=== PATIENT | female | born 1930 | race African-American/Black ===

== ENCOUNTER 2017-11-28 00:33 | Emergency (ER) | payer MEDICARE ==
[~2017-11-28] VITALS: Ht 172.7 cm; Wt 61.7 kg
[~2017-11-28 00:33] MED LIST: FOLIC ACID1 MG PO; LEVOTHYROXINE50 MCG PO; METOPROLOL TART25 MG PO; WARFARIN SODIUM3 MG PO
--- NOTE | 2017-11-28 01:56 | Diagnostic Imaging Report ---
EXAM: PELVIS AP 1-2 VIEWS INDICATION: Left knee swelling, pain, left hip pain COMPARISON: None FINDINGS: BONES: No acute fractures. JOINTS: Degenerative changes at the bilateral hips, right greater than left. SOFT TISSUES: Normal IMPRESSION: No acute pelvic findings. Signed by: Dr. Radha Hale M.D. on 11/28/2017 1:53 AM
--- NOTE | 2017-11-28 02:02 | Diagnostic Imaging Report ---
EXAM: KNEE LEFT THREE VIEWS, AP, crosstable lateral and oblique INDICATION: Left knee pain, fall COMPARISON: None FINDINGS: BONES: No acute fractures. Well-corticated ossification adjacent to the medial femoral condyle consistent with old injury. JOINTS: No malalignment. Chondrocalcinosis. Tricompartmental degenerative changes. SOFT TISSUES: Likely small suprapatellar effusion. Vascular calcifications. IMPRESSION: No evidence of an acute left knee fracture. Signed by: Dr. Radha Hale M.D. on 11/28/2017 1:58 AM
[2017-11-29] MEDS ORDERED: LISINOPRIL10 MG PO (21:37)
[2017-11-29] MEDS ORDERED: LEVOTHYROXINE88 MCG PO (21:37)
[2017-11-29] MEDS ORDERED: METOPROLOL TART25 MG PO (21:38)
[2017-11-29] MEDS ORDERED: ELIQUIS PO (21:38)
[2017-11-29] MEDS ORDERED: FOLIC ACID1 MG PO (21:38)
== END 2017-11-28 02:26 | disposition home or self-care (01) ==
LOC: ER 00:33
CPT/HCPCS: 72170; 99283

== ENCOUNTER 2017-11-29 16:32 | Inpatient (IN) | payer MEDICARE ==
[~2017-11-29] VITALS: Ht 167.6 cm; Wt 46.5 kg
--- OUTSIDE RECORDS SUMMARY | 2017-11-29 16:35 | XMS REPORT | Continuity of Care Document ---
Author Author [facility] Organization [facility] Address [address] [place] [address] Phone Unavailable Care Team Providers Care Rib Builder Name Role Phone CHANNING MYRICK MD PCP Insurance Providers Guarantor Jay James Address [address] [place] [address] Email NONE Payer [facility] Policy Number [id number] Subscriber's Name JacobJay Relationship 18 Self / Same As Patient Effective Date 11 Payer Medicare A & B Policy Number [id number] Subscriber's Name JacobJay Relationship 18 Self / Same As Patient Effective Date 95 Advance Directives Directive Response Recorded Date/Time Does the patient have an advance directive? No 10/04/16 2:05am If yes, is advance directive on file with [facility]? No 10/04/16 2:05am If not on file with [facility] will patient provide a copy? No 11/28/17 12:30am Do you have a Directive to Physician? No 11/28/17 12:30am Do you have a Medical Power of Trains Service Conductor? No 11/28/17 12:30am Do you have an out of hospital Do Not Resuscitate Order? No 11/28/17 12:30am Do you have any special needs we should be aware of? No 11/28/17 12:30am Do you have a support person here with you today? Yes 11/28/17 12:30am Did patient receive Notice of Privacy Practices? Yes 11/28/17 12:30am Did patient receive patient rights and responsibilities? Yes 11/28/17 12:30am Problems Medical Problem Onset Date Status Atrial flutter by electrocardiogram 02/09/2016 Acute Atrial flutter with controlled response 02/09/2016 Acute CVA (cerebral vascular accident) Unknown Chronic a-fib Unknown Medications Current Home Medications Medication Dose Units Route Directions Days Qty Instructions Start Date Folic Acid 1 Mg Tablet 1 Mg Oral Daily 30 Tab Levothyroxine Sodium 50 Mcg Tablet 100 Mcg Oral Daily 30 Tab Metoprolol Tartrate 25 Mg Tablet 25 Mg Oral Twice A Day Warfarin Sodium 3 Mg Tablet 9 Mg Oral Daily 30 Tab Social History Social History Problem Response Recorded Date/Time Onset Date Status Hx Psychiatric Problems No 10/04/2016 2:05am Not Applicable Not Applicable Smoking Status Start Date Stop Date Never Smoker Hospital Discharge Instructions No hospital discharge instruction information available. Plan of Care Discharge Date 11/28/17 2:26am Disposition HOME, SELF-CARE Condition at Discharge Stable Instructions/Education Provided Contusion Joint Pain Forms Provided Work/School Excuse Prescriptions See Medication Section Additional Instructions/Education FOLLOW UP WITH YOUR DOCTOR TODAY APPLY ICE AND ELEVATE YOUR LEGS REST TAKE TYLENOL ACCORDING TO LABEL Functional Status No functional status information available. Allergies, Adverse Reactions, Alerts Allergen Type Severity Reaction Status Last Updated penicillin Allergy Unknown Active 10/03/16 Immunizations No immunization information available. Vital Signs Acute Vital Signs Vital Response Date/Time Height 5 ft 8 in 11/28/2017 12:40am Weight 136 lb 11/28/2017 12:40am Body Mass Index 20.7 kg/m^2 11/28/2017 12:40am Results No relevant diagnostic test, laboratory data and/or discharge summary information available. Procedures No procedure information available. Encounters Encounter Location Arrival/Admit Date Discharge/Depart Date Attending Provider Departed Emergency Room [facility] 11/28/17 12:33am 11/28 2:26am PATRICK ARRINGTON MD
--- OUTSIDE RECORDS SUMMARY | 2017-11-29 16:35 | XMS REPORT ---
Author Author [facility] Address Unknown Phone Unavailable Care Team Providers Care Neurodiagnostic Tech Name Role Phone PATRICK ARRINGTON Unavailable Unavailable Problems This patient has no known problems. Allergies, Adverse Reactions, Alerts This patient has no known allergies or adverse reactions. Medications This patient has no known medications. Results Test Description Test Time Test Comments Text Results Atomic Results Result Comments PELVIS AP 1-2 VIEWS [place] [address] Patient Name: ZEENAT EM MR #: [id number] : 1930 Age/Sex: 87/F Req #: [id number] Adm Physician: Ordered by: PATRICK ARRINGTON MD Report #: [id number] Location: ER Room/Bed: Procedure: [id number] DX/PELVIS AP 1-2 VIEWS Exam Date: 11/28/17 Exam Time : 0135 REPORT STATUS: Signed EXAM: PELVIS AP 1-2 VIEWS INDICATION: Left knee swelling, pain, left hip pain COMPARISON: None FINDINGS: BONES: No acute fractures. JOINTS: Degenerative changes at the bilateral hips, right greater than left. SOFT TISSUES: Normal IMPRESSION: No acute pelvic findings. Signed by: Dr. Eliz Villafuerte M.D. on 11/28/2017 1:53 AM Dictated By: ELIZ VILLAFUERTE MD Transcribed By: YVON on 3 COPY TO: PATRICK ARRINGTON MD KNEE LEFT THREE VIEWS [place] [address] Patient Name: ZEENAT EM MR #: [id number] : 1930 Age/Sex: 87/F Req #: [id number] Adm Physician: Ordered by: PATRICK ARRINGTON MD Report #: [id number] Location: ER Room/Bed: Procedure: [id number] DX/KNEE LEFT THREE VIEWS Exam Date: 11/28/17 Exam Time: 0135 REPORT STATUS: Signed EXAM: KNEE LEFT THREE VIEWS, AP, crosstable lateral and oblique INDICATION: Left knee pain, fall COMPARISON: None FINDINGS: BONES: No acute fractures. Well-corticated ossification adjacent to the medial femoral condyle consistent with old injury. JOINTS: No malalignment. Chondrocalcinosis. Tricompartmental degenerative changes. SOFT TISSUES: Likely small suprapatellar effusion. Vascular calcifications. IMPRESSION: No evidence of an acute left knee fracture. Signed by: Dr. Eliz Villafuerte M.D. on 11/28/2017 1:58 AM Dictated By: ELIZ VILLAFUERTE MD [id number] Transcribed By: YVON on 11/28/17 015 COPY TO: PATRICK ARRINGTON MD
[2017-11-29 17:42] LABS: BASOPHILS % 0.5 % (0.0-1.0); EOSINOPHILS # (AUTO) 0.3 (0.0-0.4); EOSINOPHILS % 5.7 % (0.0-6.0); HEMATOCRIT 36.9 % (34.2-44.1); HEMOGLOBIN 12.1 g/dL (12.0-16.0); LYMPHOCYTES # (AUTO) 0.9 (1.0-3.2); LYMPHOCYTES % 20.6 % (18.0-39.1); MEAN CORPUSCULAR HEMOGLOBIN 30.2 pg (28-32); MEAN CORPUSCULAR HGB CONC 32.8 g/dL (31-35); MONOCYTES # (AUTO) 0.4 (0.2-0.8); MONOCYTES % 7.9 % (4.4-11.3); NEUTROPHILS # (AUTO) 2.9 (2.1-6.9); NEUTROPHILS % 65.1 % (38.7-80.0); PLATELET COUNT 164 x10e3/uL (140-360); RED BLOOD COUNT 4.01 x10e6/uL (3.6-5.1)
[2017-11-29 17:48] LABS: INR 1.35; PROTHROMBIN TIME 15.7 seconds (11.9-14.5)
[2017-11-29 17:49] LABS: CLARITY,URINE CLOUDY (CLEAR); COLOR,URINE YELLOW (YELLOW); KETONES,URINE NEGATIVE (NEGATIVE); LEUKOCYTE ESTERASE ,URINE 2+ (NEGATIVE); NITRITE,URINE NEGATIVE (NEGATIVE); PROTEIN,URINE DIPSTICK 1+ (NEGATIVE); URINE UROBILINOGEN 0.2 mg/dL (0.2 - 1)
[2017-11-29 17:49] LABS: PARTIAL THROMBOPLASTIN TIME 33.7 seconds (23.8-35.5)
[2017-11-29 17:50] LABS: BILIRUBIN,URINE NEGATIVE (NEGATIVE)
[2017-11-29 17:55] LABS: ALANINE AMINOTRANSFERASE 17 IU/L (0-55); ALBUMIN 2.5 g/dL (3.5-5.0); ALBUMIN/GLOBULIN RATIO 0.5 (0.8-2.0); ALKALINE PHOSPHATASE 57 IU/L (40-150); ANION GAP 11.4 mmol/L (8-16); BLOOD UREA NITROGEN 50 mg/dL (7-26); BUN/CREATININE RATIO 35 (6-25); CALCIUM 9.5 mg/dL (8.4-10.2); CARBON DIOXIDE 24 mmol/L (22-29); CHLORIDE 108 mmol/L (98-107); CREATINE KINASE 1097 IU/L (29-168); CREATININE, SERUM 1.43 mg/dL (0.57-1.11); EST GLOMERULAR FILTRATION RATE 42 ML/MIN (60-); GLUCOSE 93 mg/dL (74-118); MAGNESIUM 1.8 MG/DL (1.3-2.1); POTASSIUM 4.4 mmol/L (3.5-5.1); SODIUM 139 mmol/L (136-145)
[2017-11-29 18:02] LABS: WBC,URINE (MAN) >50 /HPF (0-5)
[2017-11-29 18:03] LABS: BACTERIA,URINE MODERATE /HPF; EPITHELIAL CELLS,URINE FEW /LPF; MUCUS,URINE RARE (RARE)
[2017-11-29 18:15] LABS: THYROID STIMULATING HORMONE 3.707 uIU/mL (0.350-4.940)
--- NOTE | 2017-11-29 18:34 | Diagnostic Imaging Report ---
PROCEDURE: A single AP view of the chest. COMPARISON: Chest radiograph 02/10/2016 INDICATIONS: STROKE/CVA FINDINGS: Lines/tubes: None. Lungs: The lungs are well inflated and clear. There is no evidence of pneumonia or pulmonary edema. Pleura: There is no pleural effusion or pneumothorax. Heart and mediastinum: Stable enlargement of the cardiac silhouette. Bones: No acute bony abnormality. IMPRESSION: No acute cardiopulmonary disease. Dictated by: Christopher Parrish M.D. on 11/29/2017 at 18:35 Electronically approved by: Christopher Parrish M.D. on 11/29/2017 at 18:35
--- NOTE | 2017-11-29 18:47 | Diagnostic Imaging Report ---
History:Acute encephalopathy Comparison studies:CT brain from 10/03/2016. Technique: Axial images were obtained from the skull base to the vertex. Coronal and sagittal images reconstructed from the axial data. Intravenous contrast: None Findings: Scalp/skull: No abnormalities. Extra-axial spaces: No masses. No fluid collections. Brain sulci: Mildly prominent. Ventricles: Mild compensatory dilatation. No hydrocephalus. Parenchyma: Encephalomalacia in the left occipital lobe lingual gyrus. Old lacunar infarct is seen in the left lateral cerebral hemisphere. Scattered and confluent hypodensities in the supratentorial white matter are small vessel ischemic changes. Sellar/suprasellar region: No abnormalities. Craniocervical junction: Patent foramen magnum. No Chiari one malformation. Incidental findings: Atherosclerotic calcifications in the carotid siphons . Impression: 1. No acute abnormalities. 2. Encephalomalacia in the left occipital lobe related to prior insult. 3. Old lacunar infarct in the left cerebellar hemisphere. Chronic findings: 1. Mild generalized volume loss. 2. Mild to moderate supratentorial white matter small vessel ischemic changes. A preliminary report was given by Neuroradiology fellow Dr. Siddiqui at 6.46 PM on 11/29/2017. I have reviewed the study and agree with the findings in the preliminary report. Signed by: Dr. Raina Rosado M.D. on 11/29/2017 7:53 PM
[2017-11-29] MEDS ORDERED: VANCOMYCIN 1GM/NS 250 ML 250 ML IV STA (19:50)
[2017-11-29] MEDS ORDERED: SODIUM CHLORIDE 0.9% 1000ML 1,000 ML IV SCH (20:00)
[2017-11-29] MEDS ORDERED: SODIUM CHLORIDE 0.9% 500ML 500 ML IV ONE (20:00)
[2017-11-29] MEDS ORDERED: HYDRALAZINE HCL 20 MG/ML VIAL IV ONE (20:11)
[2017-11-29] MEDS ORDERED: HYDRALAZINE HCL 20 MG/ML VIAL IV PRN (20:15)
[2017-11-29] MEDS: CEFEPIME HCL 2 GM VIAL IV SCH (20:42)
[2017-11-29] MEDS ORDERED: ONDANSETRON HCL 4 MG ORAL DISINTEGRATING TAB PO PRN (21:30)
[2017-11-29] MEDS ORDERED: ACETAMINOPHEN 325 MG TAB PO PRN (21:30)
[2017-11-29] MEDS ORDERED: LISINOPRIL10 MG PO (21:37)
[2017-11-29] MEDS ORDERED: LEVOTHYROXINE88 MCG PO (21:37)
[2017-11-29] MEDS ORDERED: ELIQUIS PO (21:38)
[2017-11-29] MEDS ORDERED: METOPROLOL TART25 MG PO (21:38)
[2017-11-29] MEDS ORDERED: FOLIC ACID1 MG PO (21:38)
[2017-11-30] VITALS (7 sets, daily range): BP systolic 139–171; BP diastolic 84–112
--- NOTE | 2017-11-30 06:06 | Diagnostic Imaging Report ---
EXAM: CHEST SINGLE (PORTABLE), AP 1 view INDICATION: CHF COMPARISON: AP view of the chest November 29, 2017 FINDINGS: LINES/TUBES: None LUNGS: No consolidations or edema. Mild perihilar atelectasis. PLEURA: No effusions or pneumothorax. HEART AND MEDIASTINUM: Normal size and contour. BONES AND SOFT TISSUES: No acute findings. IMPRESSION: No acute thoracic abnormality. Signed by: Dr. Radha Hael M.D. on 11/30/2017 6:02 AM
[2017-11-30 06:24] LABS: BASOPHILS % 0.5 % (0.0-1.0); EOSINOPHILS # (AUTO) 0.3 (0.0-0.4); EOSINOPHILS % 6.8 % (0.0-6.0); HEMATOCRIT 44.2 % (34.2-44.1); HEMOGLOBIN 14.4 g/dL (12.0-16.0); LYMPHOCYTES # (AUTO) 0.8 (1.0-3.2); LYMPHOCYTES % 19.7 % (18.0-39.1); MEAN CORPUSCULAR HEMOGLOBIN 30.1 pg (28-32); MEAN CORPUSCULAR HGB CONC 32.6 g/dL (31-35); MEAN CORPUSCULAR VOLUME 92.5 fL (81-99); MONOCYTES # (AUTO) 0.4 (0.2-0.8); NEUTROPHILS # (AUTO) 2.6 (2.1-6.9); NEUTROPHILS % 62.5 % (38.7-80.0); PLATELET COUNT 159 x10e3/uL (140-360); RED BLOOD COUNT 4.78 x10e6/uL (3.6-5.1); RED CELL DISTRIBUTION WIDTH 13.1 % (11.7-14.4)
[2017-11-30 06:48] LABS: ALBUMIN 2.5 g/dL (3.5-5.0); ALBUMIN/GLOBULIN RATIO 0.5 (0.8-2.0); ANION GAP 14.4 mmol/L (8-16); CALCIUM 9.9 mg/dL (8.4-10.2); CREATININE, SERUM 1.23 mg/dL (0.57-1.11); MAGNESIUM 1.7 MG/DL (1.3-2.1); POTASSIUM 4.4 mmol/L (3.5-5.1)
[2017-11-30 07:07] LABS: CREATINE KINASE MB 12.5 ng/mL (0-5.0)
[2017-11-30] MEDS: CEFEPIME HCL 2 GM VIAL IV SCH (08:00)
[2017-11-30 14:43] LABS: CREATINE KINASE MB 8.6 ng/mL (0-5.0)
[2017-11-30] MEDS: SODIUM BICARBONATE 8.4% 150 ML in DEXTROSE 5% 1,000 ML IV SCH (15:00)
--- NOTE | 2017-11-30 15:02 | History and Physical ---
CHIEF COMPLAINT: Change in mental status and weakness. HISTORY OF PRESENT ILLNESS: This is an 87-year-old female with a past medical history of hypertension, coronary artery disease, congestive heart failure, atrial fibrillation, hypothyroidism. She was in her usual state of health until the patient's family brought her to the emergency room for change in mental status and weakness. No other history was obtained from the patient. More history was obtained from EMS. The home health nurse was visiting her. The patient was feeling drowsy at home. No chest pain. No shortness of breath. No cough. No diarrhea. No constipation. No fever. The patient was brought in by family. The ER doctor called Dr. Alvarado. ALLERGY: ALLERGIC TO PENICILLIN. PAST MEDICAL HISTORY 1. Congestive heart failure. 2. CAD. 3. History of DVT and pulmonary embolism. 4. Hypertension. 5. Hypothyroidism. 6. Osteoarthritis. PAST SURGICAL HISTORY: Not available. HOME MEDICATIONS: List attached. SOCIAL HISTORY: Noncontributory. FAMILY HISTORY: Noncontributory. PERSONAL HISTORY: Patient denies smoking. Denies alcohol use. Denies illicit drug use. REVIEW OF SYSTEMS: Unable to obtain. PHYSICAL EXAMINATION GENERAL: This is an 87-year-old female who is alert but oriented times 0. VITAL SIGNS: Temperature 97.2, pulse 93, respirations 18, blood pressure 143/93. HEENT: Head is atraumatic and normocephalic. Pupils are bilaterally equal and reactive to light. Extraocular muscles are intact. The neck is supple. No JVD. No carotid bruit. Tongue is dry. No clubbing. No cyanosis. No skin rash. LUNGS: Clear to auscultation and percussion bilaterally. No added sounds. HEART: S1 and S2, regular rate and rhythm. No S3, no S4, no murmur. ABDOMEN: Soft, nontender. No guarding. No rigidity. EXTREMITIES: No pedal edema. Peripheral pulses +1. TREASURY ACCOUNTANT: The patient is alert but oriented times 0. Weak. No focal weakness. Chest x-ray is normal. CT of the brain: No acute abnormality. Encephalomalacia in the occipital lobe. Old lacunar infarct in left cerebral hemisphere. White count 4.11, hemoglobin 14.4, hematocrit 44.2, platelets 159. Sodium 140, potassium 4.4, BUN 40, creatinine 1.23. AST 40. CPK is 1097, CK-MB 1960, troponin less than 0.001. BNP 475. Urine: Leukocytes plus. Urine RBCs 11-20. WBCs in urine more than 50. Blood plus. Protein plus. Cloudy. ASSESSMENT 1. Metabolic encephalopathy. 2. Rhabdomyolysis. 3. Renal failure possibly from dehydration and rhabdomyolysis. 4. Urinary tract infection. 5. Hypothyroidism. 6. Hypertension. 7. History of congestive heart failure. 8. History of atrial fibrillation. 9. History of coronary artery disease. 10. Past medical history of deep venous thrombosis and pulmonary embolism, off Coumadin. PLAN: Admit to telemetry. IV cefepime changed to 2 g IV q.24 h. IV fluids at 75 mL per hour. Renal consult with Dr. Tyler. ID consult with Dr. Cox. Labs in the morning. BMP in the morning. CPK in the morning. Case discussed with the nursing staff, and we will discuss with the family, too. Condition and prognosis guarded. Job#: [id number]
--- NOTE | 2017-11-30 16:32 | Consultation ---
DATE OF CONSULTATION: REASON FOR CONSULTATION: UTI. HISTORY OF PRESENT ILLNESS: This patient who is an 87-year-old white female denies any past medical history, does not provide meaningful information. Patient does have an underlying history of dementia, atrial fibrillation, hypothyroidism, coronary artery disease, congestive heart failure, DVT, COPD, CVA, and hypertension who [facility] with [facility]argy. The patient apparently does have history of dementia but apparently is less responsive than usual, so the [facility] referred her here where she was evaluated in the emergency room and admitted. Apparently, there is no fever, no chills, no nausea, no vomiting, and no diarrhea. It has been reported that review of systems could not be obtained. PAST MEDICAL HISTORY: As above, hypothyroidism, atrial fibrillation, coronary artery disease, congestive heart failure, DVT, PE, and COPD. PAST SURGICAL HISTORY: Unavailable. ALLERGIES: NKA. SOCIAL HISTORY: From [facility]. FAMILY HISTORY: Could not be obtained. REVIEW OF SYSTEMS: Could not be obtained. MEDICATION: Currently, patient is on heparin subcu and she was started on cefepime 2 gram daily. LABORATORY AND DIAGNOSTIC DATA: White count 4.42, hemoglobin 12, and hematocrit 36. Sodium 140, potassium 4.4, and creatinine 1.23. Her chest x-ray showed no acute findings. Head CT, no acute abnormality, encephalomalacia in the left occipital lobe relative to prior insult. PHYSICAL EXAMINATION VITALS: Lethargic. Currently afebrile, temperature is 97.1, heart rate 97, respirations 18, and blood pressure 159/87. HEENT: Normocephalic. Not icteric. NECK: Supple. CHEST: Clear bilaterally. COR: S1 and S2. No S3, S4, or murmur. ABDOMEN: Soft. Bowel sounds present. Patient does have a Frias catheter. EXTREMITIES: No edema. IMPRESSION AND PLAN: Altered mental status, could be sepsis. Agree with cefepime. Agree with IV fluids. Recheck CBC. We will follow with you. Job#: [id number] PAULETTE
[2017-11-30] MEDS: METOPROLOL TARTRATE 25 MG TAB PO SCH (17:00)
[2017-11-30] MEDS: HEPARIN SOD (PORCINE) 5,000 UNIT/ML VIAL SC SCH (20:33)
--- NOTE | 2017-11-30 23:20 | Diagnostic Imaging Report ---
EXAM: Renal Ultrasound INDICATION: TARUN COMPARISON: None TECHNIQUE: Transverse and longitudinal sonographic images of the kidneys and bladder were obtained. FINDINGS: RIGHT KIDNEY: 7.8 x 3.2 x 2.2 cm, normal cortical thickness. Echogenicity: Normal Hydronephrosis: None Calculi: None Cyst/Mass: None LEFT KIDNEY: Not visualized BLADDER: Decompressed by Frias catheter. IMPRESSION: Normal sonographic appearance of the right kidney. The left kidney could not be visualized, possibly secondary to bowel gas Signed by: Dr. Radha Hale M.D. on 11/30/2017 11:16 PM
--- NOTE | 2017-11-30 23:34 | Consultation ---
DATE OF CONSULTATION: November 30, 2017 History predominantly from chart, electronic records. HISTORY: Patient is alert. She is lying supine. She is comfortable. Follows commands to very limited extent. She does not talk much at all. Unable to get history. She has prior history of CVA, hypothyroidism, atrial fibrillation, prior DVT, COPD, coronary artery disease, prior RI, history of coronary artery stents. No prior history of any tobacco addiction or alcohol use. Apparently admitted with altered mental status. She has been treated for acute kidney injury and possible rhabdomyolysis. PHYSICAL EXAMINATION: GENERAL: Currently lying supine, in no apparent distress. VITAL SIGNS: Has a blood pressure of 159/91, pulse rate 80, afebrile, respiratory rate 17 with oxygen saturation 97%. HEENT: Head and neck: Cornea clear. Oral mucosa moist. This is a very thin-built female with very poor muscle mass. HEART: S1, S2 audible. ABDOMEN: Otherwise soft, nontender. LOWER EXTREMITIES: Showed no edema. RECENT WORKUPS: CT of the brain shows encephalomalacia. White count is 4.1, hemoglobin 14.4. Sodium 140, potassium 4.4, bicarbonate 22, BUN 40, creatinine 1.2, lactic acid 12.1. BNP 475 with a CK of 745. CURRENT MEDICATIONS: Patient is on levothyroxine, pantoprazole, hydralazine, was on normal saline, metoprolol, heparin, ondansetron, and cefepime. SOCIAL HISTORY: Does not smoke or drink. FAMILY HISTORY: Significant for hypertension. On exam, awake, alert, lying supine with the blood pressure as above, and physical exam as above. IMPRESSION AND PLAN: 1. Acute kidney injury with evidence of rhabdomyolysis. Will obtain urinalysis, STAT kidney ultrasound. Change intravenous fluids to intravenous bicarbonate. 2. Baseline mental status unclear, unable to get any history from patient. Computerized tomography shows evidence of encephalomalacia, may be dealing with dementia. 3. Has atrial fibrillation and prior cerebrovascular accident. Workup ordered. Please see orders. Thank you. Job#: [id number]
[2017-11-30] MEDS: HYDRALAZINE HCL 20 MG/ML VIAL IV PRN (23:38)
[2017-12-01] VITALS: BP 185/110
[2017-12-01] MEDS: SODIUM BICARBONATE 8.4% 150 ML in DEXTROSE 5% 1,000 ML IV SCH ×3 (02:30→15:30)
[2017-12-01 04:00] VITALS: BP 156/90
[2017-12-01] MEDS: LEVOTHYROXINE SODIUM 88 MCG TAB PO SCH (05:31)
[2017-12-01] MEDS: PANTOPRAZOLE SOD 40 MG TABEC PO SCH (07:30)
[2017-12-01 08:10] VITALS: BP 175/96
[2017-12-01 08:14] LABS: ALANINE AMINOTRANSFERASE 15 IU/L (0-55); ALBUMIN 2.3 g/dL (3.5-5.0); ALBUMIN/GLOBULIN RATIO 0.5 (0.8-2.0); ALKALINE PHOSPHATASE 55 IU/L (40-150); ANION GAP 11.6 mmol/L (8-16); BLOOD UREA NITROGEN 25 mg/dL (7-26); BUN/CREATININE RATIO 26 (6-25); CALCIUM 9.8 mg/dL (8.4-10.2); CARBON DIOXIDE 30 mmol/L (22-29); CHLORIDE 102 mmol/L (98-107); CREATININE, SERUM 0.97 mg/dL (0.57-1.11); EST GLOMERULAR FILTRATION RATE > 60 ML/MIN (60-); POTASSIUM 4.6 mmol/L (3.5-5.1); SODIUM 139 mmol/L (136-145)
[2017-12-01] MEDS: METOPROLOL TARTRATE 25 MG TAB PO SCH ×2 (09:00→17:00)
[2017-12-01] MEDS: FOLIC ACID 1 MG TAB PO SCH (09:00)
[2017-12-01] MEDS: CEFEPIME HCL 2 GM VIAL IV SCH (09:00)
[2017-12-01] MEDS: HEPARIN SOD (PORCINE) 5,000 UNIT/ML VIAL SC SCH ×2 (09:50→21:30)
[2017-12-01 10:37] LABS: GLUCOSE 124 mg/dL (74-118)
[2017-12-01 12:46] VITALS: BP 133/90
[2017-12-01] MEDS ORDERED: DEXTROSE 5% 1,000 ML IV ONE (15:08)
[2017-12-01 16:17] VITALS: BP 134/88
[2017-12-01] MEDS ORDERED: HYDRALAZINE HCL 25 MG TAB PO SCH (17:00)
[2017-12-01] MEDS ORDERED: METOPROLOL TARTRATE 25 MG TAB PO SCH (17:00)
[2017-12-01] MEDS: HYDRALAZINE HCL 25 MG TAB PO SCH (17:00)
[2017-12-01] MEDS ORDERED: CARVEDILOL 3.125 MG TAB PO SCH (17:00)
[2017-12-01 20:00] VITALS: BP 108/81
[2017-12-02] VITALS (9 sets, daily range): BP systolic 89–178; BP diastolic 67–91
[2017-12-02] MEDS: HYDRALAZINE HCL 20 MG/ML VIAL IV PRN (00:43)
[2017-12-02] MEDS: LEVOTHYROXINE SODIUM 88 MCG TAB PO SCH (06:00)
[2017-12-02] MEDS: SODIUM BICARBONATE 8.4% 150 ML in DEXTROSE 5% 1,000 ML IV SCH (07:06)
[2017-12-02 07:07] LABS: BASOPHILS % 0.5 % (0.0-1.0); EOSINOPHILS # (AUTO) 0.2 (0.0-0.4); EOSINOPHILS % 4.4 % (0.0-6.0); HEMATOCRIT 40.8 % (34.2-44.1); HEMOGLOBIN 13.4 g/dL (12.0-16.0); LYMPHOCYTES # (AUTO) 1.2 (1.0-3.2); MEAN CORPUSCULAR HEMOGLOBIN 29.5 pg (28-32); MEAN CORPUSCULAR HGB CONC 32.8 g/dL (31-35); MEAN CORPUSCULAR VOLUME 89.7 fL (81-99); MONOCYTES # (AUTO) 0.4 (0.2-0.8); MONOCYTES % 9.5 % (4.4-11.3); NEUTROPHILS # (AUTO) 2.1 (2.1-6.9); NEUTROPHILS % 54.3 % (38.7-80.0); PLATELET COUNT 170 x10e3/uL (140-360); RED BLOOD COUNT 4.55 x10e6/uL (3.6-5.1); RED CELL DISTRIBUTION WIDTH 12.7 % (11.7-14.4)
[2017-12-02 07:29] LABS: ANION GAP 14.4 mmol/L (8-16); BLOOD UREA NITROGEN 16 mg/dL (7-26); BUN/CREATININE RATIO 19 (6-25); CALCIUM 8.9 mg/dL (8.4-10.2); CARBON DIOXIDE 31 mmol/L (22-29); CHLORIDE 95 mmol/L (98-107); CREATININE, SERUM 0.86 mg/dL (0.57-1.11); EST GLOMERULAR FILTRATION RATE > 60 ML/MIN (60-); GLUCOSE 108 mg/dL (74-118); POTASSIUM 3.4 mmol/L (3.5-5.1); SODIUM 137 mmol/L (136-145)
[2017-12-02] MEDS: PANTOPRAZOLE SOD 40 MG TABEC PO SCH (08:00)
[2017-12-02] MEDS: METOPROLOL TARTRATE 25 MG TAB PO SCH ×2 (08:18→17:11)
[2017-12-02] MEDS: APIXAB 2.5 MG TABLET PO SCH ×2 (08:18→17:11)
[2017-12-02] MEDS: HYDRALAZINE HCL 25 MG TAB PO SCH ×2 (08:18→17:11)
[2017-12-02] MEDS: CEFEPIME HCL 2 GM VIAL IV SCH (08:18)
[2017-12-02] MEDS: FOLIC ACID 1 MG TAB PO SCH (08:18)
[2017-12-02] MEDS ORDERED: POTASSIUM CHLORIDE 20 MEQ TAB CR PO ONE (09:00)
[2017-12-02 15:10] LABS: BILIRUBIN,URINE NEGATIVE (NEGATIVE); CLARITY,URINE CLEAR (CLEAR); COLOR,URINE YELLOW (YELLOW); KETONES,URINE NEGATIVE (NEGATIVE); LEUKOCYTE ESTERASE ,URINE NEGATIVE (NEGATIVE); NITRITE,URINE NEGATIVE (NEGATIVE); PROTEIN,URINE DIPSTICK 2+ (NEGATIVE); URINE UROBILINOGEN 0.2 mg/dL (0.2 - 1)
[2017-12-02 15:26] LABS: EPITHELIAL CELLS,URINE FEW /LPF; RENAL EPITHELIAL CELLS,URINE FEW; WBC,URINE (MAN) 0-5 /HPF (0-5)
[2017-12-02] MEDS: SODIUM CHLORIDE 0.9% 1000ML 1,000 ML IV SCH (21:34)
[2017-12-03] VITALS (7 sets, daily range): BP systolic 104–182; BP diastolic 62–92
[2017-12-03] MEDS: LEVOTHYROXINE SODIUM 88 MCG TAB PO SCH (07:01)
[2017-12-03 07:53] LABS: ALANINE AMINOTRANSFERASE 10 IU/L (0-55); ALBUMIN 2.2 g/dL (3.5-5.0); ALBUMIN/GLOBULIN RATIO 0.5 (0.8-2.0); ALKALINE PHOSPHATASE 54 IU/L (40-150); ANION GAP 11.6 mmol/L (8-16); BLOOD UREA NITROGEN 13 mg/dL (7-26); BUN/CREATININE RATIO 14 (6-25); CALCIUM 9.1 mg/dL (8.4-10.2); CARBON DIOXIDE 33 mmol/L (22-29); CHLORIDE 96 mmol/L (98-107); CREATININE, SERUM 0.92 mg/dL (0.57-1.11); EST GLOMERULAR FILTRATION RATE > 60 ML/MIN (60-); GLUCOSE 86 mg/dL (74-118); POTASSIUM 3.6 mmol/L (3.5-5.1); SODIUM 137 mmol/L (136-145)
[2017-12-03] MEDS: FOLIC ACID 1 MG TAB PO SCH (08:30)
[2017-12-03] MEDS: CEFEPIME HCL 2 GM VIAL IV SCH (08:30)
[2017-12-03] MEDS: METOPROLOL TARTRATE 25 MG TAB PO SCH ×2 (08:30→17:15)
[2017-12-03] MEDS: PANTOPRAZOLE SOD 40 MG TABEC PO SCH (08:30)
[2017-12-03] MEDS: APIXAB 2.5 MG TABLET PO SCH ×2 (08:30→17:15)
[2017-12-03] MEDS: COLLAGENASE OINTMENT 30 GM TUBE TP SCH (09:56)
[2017-12-03] MEDS: BALSAM PERU/CASTOR OIL 60 GM OINT...G. TP SCH (09:56)
[2017-12-03] MEDS ORDERED: LISINOPRIL 10 MG TAB PO SCH (10:00)
[2017-12-03] MEDS: SODIUM CHLORIDE 0.9% 1000ML 1,000 ML IV SCH (14:05)
[2017-12-03] MEDS: NIFEDIPINE CR 30 MG TAB PO SCH (17:15)
[2017-12-04] VITALS (7 sets, daily range): BP systolic 92–164; BP diastolic 57–101
[2017-12-04] MEDS: SODIUM CHLORIDE 0.9% 1000ML 1,000 ML IV SCH ×2 (02:24→09:43)
[2017-12-04] MEDS: LEVOTHYROXINE SODIUM 88 MCG TAB PO SCH (06:03)
[2017-12-04] MEDS: FOLIC ACID 1 MG TAB PO SCH (08:50)
[2017-12-04] MEDS: COLLAGENASE OINTMENT 30 GM TUBE TP SCH (08:50)
[2017-12-04] MEDS: PANTOPRAZOLE SOD 40 MG TABEC PO SCH (08:50)
[2017-12-04] MEDS: METOPROLOL TARTRATE 25 MG TAB PO SCH ×2 (08:50→16:37)
[2017-12-04] MEDS: BALSAM PERU/CASTOR OIL 60 GM OINT...G. TP SCH (08:50)
[2017-12-04] MEDS: CEFEPIME HCL 2 GM VIAL IV SCH (08:50)
[2017-12-04] MEDS: APIXAB 2.5 MG TABLET PO SCH ×2 (08:50→16:59)
[2017-12-04] MEDS: NIFEDIPINE CR 30 MG TAB PO SCH ×2 (08:50→16:37)
== END 2017-12-04 18:51 | DRG 871 ==
LOC: ER 16:32 → ERHOLD 21:27 → MED/SURG3 21:57
PROVIDERS: ADMIT Internal Medicine; ATTEND Internal Medicine
DX: A41.9 Sepsis, unspecified organism (principal); G93.41 Metabolic encephalopathy; M62.82 Rhabdomyolysis; N39.0 Urinary tract infection, site not specified; N17.9 Acute kidney failure, unspecified; Z86.718 Personal history of other venous thrombosis and embolism; Z79.01 Long term (current) use of anticoagulants; Z86.73 Personal history of transient ischemic attack (TIA), and cerebral infarction without residual deficits; I48.91 Unspecified atrial fibrillation; J44.9 Chronic obstructive pulmonary disease, unspecified; I25.10 Atherosclerotic heart disease of native coronary artery without angina pectoris; Z95.5 Presence of coronary angioplasty implant and graft; E86.0 Dehydration; E87.8 Other disorders of electrolyte and fluid balance, not elsewhere classified; I11.0 Hypertensive heart disease with heart failure; I50.9 Heart failure, unspecified; G93.89 Other specified disorders of brain; Z79.52 Long term (current) use of systemic steroids
CPT/HCPCS: 36415; 51700; 70450; 71045; 76770; 80048; 80053; 81001; 82550; 82553; 83605; 83735; 83880; 84443; 84484; 85025; 85610; 85730; 87040; 87086; 97139; 99284; J0360; J0692; J1644; J3370; J7030; J7040; J7070

== ENCOUNTER 2019-04-14 18:11 | Inpatient (IN) | payer MEDICARE ==
[~2019-04-14] VITALS: Ht 167.6 cm; Wt 57.6 kg
[~2019-04-14 18:11] MED LIST changes: +ELIQUIS PO; +LEVOTHYROXINE88 MCG PO; +LISINOPRIL10 MG PO
[2019-04-14 19:13] LABS: BASOPHILS % 0.4 % (0.0-1.0); EOSINOPHILS # (AUTO) 0.2 (0.0-0.4); HEMATOCRIT 44.4 % (34.2-44.1); HEMOGLOBIN 14.3 g/dL (12.0-16.0); LYMPHOCYTES % 17.9 % (18.0-39.1); MEAN CORPUSCULAR HEMOGLOBIN 30.6 pg (28-32); MEAN CORPUSCULAR HGB CONC 32.2 g/dL (31-35); MEAN CORPUSCULAR VOLUME 94.9 fL (81-99); MONOCYTES # (AUTO) 0.3 (0.2-0.8); MONOCYTES % 4.9 % (4.4-11.3); NEUTROPHILS # (AUTO) 3.8 (2.1-6.9); PLATELET COUNT 140 x10e3/uL (140-360); RED BLOOD COUNT 4.68 x10e6/uL (3.6-5.1); RED CELL DISTRIBUTION WIDTH 13.4 % (11.7-14.4)
[2019-04-14 19:22] LABS: INR 1.13
[2019-04-14 19:23] LABS: PARTIAL THROMBOPLASTIN TIME 30.9 seconds (23.8-35.5)
[2019-04-14 19:30] LABS: ALBUMIN 2.9 g/dL (3.5-5.0); ALBUMIN/GLOBULIN RATIO 0.6 (0.8-2.0); CALCIUM 10.1 mg/dL (8.4-10.2); CREATININE, SERUM 1.24 mg/dL (0.57-1.11)
[2019-04-14 19:39] LABS: CREATINE KINASE MB 15.2 ng/mL (0-5.0)
[2019-04-14 19:46] LABS: BILIRUBIN,URINE SMALL (NEGATIVE); CLARITY,URINE SL CLOUDY (CLEAR); COLOR,URINE YELLOW (YELLOW); KETONES,URINE NEGATIVE (NEGATIVE); LEUKOCYTE ESTERASE ,URINE NEGATIVE (NEGATIVE); NITRITE,URINE NEGATIVE (NEGATIVE); URINE UROBILINOGEN 4 mg/dL (0.2 - 1)
[2019-04-14 19:48] LABS: PROTEIN,URINE DIPSTICK 3+ (NEGATIVE)
[2019-04-14 20:19] LABS: BACTERIA,URINE MANY /HPF; EPITHELIAL CELLS,URINE FEW /LPF
--- NOTE | 2019-04-14 20:22 | Diagnostic Imaging Report ---
EXAMINATION: CHEST SINGLE (PORTABLE) INDICATION: Altered mental status ^AMS COMPARISON: November 30, 2017 FINDINGS: TUBES and LINES: None. LUNGS: Lungs are well inflated. Lungs are clear. There is no evidence of pneumonia or pulmonary edema. PLEURA: No pleural effusion or pneumothorax. HEART AND MEDIASTINUM: The cardiomediastinal silhouette is unremarkable. BONES AND SOFT TISSUES: No acute osseous lesion. Soft tissues are unremarkable. UPPER ABDOMEN: No free air under the diaphragm. IMPRESSION: No acute thoracic abnormality. Signed by: Dr. Aiden Reyes M.D. on 04/14/2019 8:19 PM
--- NOTE | 2019-04-14 20:23 | Diagnostic Imaging Report ---
Frontal radiograph of the pelvis - 1 view HISTORY: Pain COMPARISON: None available. FINDINGS: Bones: No acute displaced fracture. Osseous alignment is within normal limits. Joints: Scattered degenerative change. No osseous erosion Soft tissues: The soft tissues appear unremarkable. IMPRESSION: Scattered degenerative change. No osseous erosion Signed by: Dr. Aiden Reyes M.D. on 04/14/2019 8:20 PM
--- NOTE | 2019-04-14 20:24 | Diagnostic Imaging Report ---
Frontal radiograph of the left knee 3 views HISTORY: Pain COMPARISON: None available. FINDINGS: Bones: No acute displaced fracture. Osseous alignment is within normal limits. Joints: Scattered degenerative change. No osseous erosion Soft tissues: The soft tissues appear unremarkable. IMPRESSION: Scattered degenerative change. No osseous erosion Signed by: Dr. Aiden Reyes M.D. on 04/14/2019 8:21 PM
[2019-04-14] MEDS ORDERED: SODIUM CHLORIDE 0.9% 500ML 500 ML IV ONE (20:30)
[2019-04-14] MEDS ORDERED: VANCOMYCIN 1GM/NS 250 ML 250 ML IV ONE (20:30)
--- NOTE | 2019-04-14 20:30 | Diagnostic Imaging Report ---
EXAMINATION: Head CT without contrast. HISTORY:Altered mental status. COMPARISON:CT brain from 11/29/2017. TECHNIQUE: Multidetector axial images were obtained from the foramen magnum to the vertex without contrast. The images were reconstructed using brain and bone algorithms. Thin section brain images were reformatted into coronal and sagittal planes. Dose modulation, iterative reconstruction, and/or weight based adjustment of the mA/kV was utilized to reduce the radiation dose to as low as reasonably achievable. Intravenous contrast: None IMAGE QUALITY: Acceptable. FINDINGS: Skull/scalp: No lytic or blastic. lesions. No surgical changes. Parenchyma: Age indeterminate lacunar infarct in left caudate head and right thalamus. Unchanged chronic encephalomalacia in left occipital lobe from prior vascular insult in left ECA territory. Chronic lacunar infarct in left cerebellar hemisphere. Nonspecific bilateral frontoparietal patchy white matter hypodensity are likely related to small vessel ischemic changes. No acute hemorrhage or mass. Arteries: No density suggestive of thrombosis. Atherosclerotic calcification in bilateral carotid siphon. Dural sinuses: No abnormal density suggestive of thrombosis. Ventricles: Mild compensated dilatation due to volume loss. No hydrocephalus. Extra-axial spaces: No abnormal density. Brain volume: Normal for age. Craniocervical junction: No mass, Chiari malformation, or basilar invagination. Sella: No mass. Paranasal/mastoid sinuses: Imaged portions unremarkable. IMPRESSION: 1. Interval development of age indeterminate lacunar infarct in left caudate head and right thalamus. 2. No acute intracranial hemorrhage. Chronic findings: 1. Moderate supratentorial white matter microvascular ischemic changes. 2. Chronic encephalomalacia in left occipital lobe from prior vascular insult and chronic lacunar infarct in left cerebellar hemisphere. 3. Mild generalized cerebral volume loss. Signed by: Dr. Raina Rosado M.D. on 04/14/2019 8:26 PM
--- NOTE | 2019-04-14 20:38 | Diagnostic Imaging Report ---
History: Altered mental status. Comparison studies: None Technique: Axial images were obtained through the cervical region.. Coronal and sagittal images reconstructed from the axial data. Dose modulation, iterative reconstruction, and/or weight based adjustment of the mA/kV was utilized to reduce the radiation dose to as low as reasonably achievable. Intravenous contrast: None Findings: Fractures: None. Soft tissue injuries: None. Atlantoaxial articulation: Intact. Alignment: Loss of normal cervical lordosis is either positional or due to muscle spasm. No scoliosis. 2 mm grade 1 retrolisthesis at C3-C4. Cervicomedullary junction: No abnormalities. The foramen magnum is patent. Soft tissues: No abnormalities. Vertebrae: No fractures, infection or neoplasm. Degenerative changes: C3-C4: Moderate to severe degenerative disc disease. Posterior disc osteophyte complex results in mild canal stenosis. Mild right and moderate left foraminal stenosis due to facet and uncovertebral arthrosis. C4-C5: Moderate degenerative disc disease. Posterior disc osteophyte complex and ossification of posterior longitudinal ligament results in mild to moderate canal stenosis. Mild bilateral foraminal stenosis due to uncovertebral arthrosis. C5-C6: Moderate degenerative disc disease. Posterior disc osteophyte complex without significant canal stenosis. Moderate bilateral foraminal stenosis due to facet and uncovertebral arthrosis. C6-C7: Severe degenerative disc disease. Posterior disc osteophyte complex without significant canal stenosis. Mild bilateral foraminal stenosis due to uncovertebral arthrosis. IMPRESSION: 1. No acute cervical spine fracture or dislocation. Loss of normal cervical lordosis is either positional or due to muscle spasm. 2. Ligament, spinal cord and or vascular abnormalities cannot be excluded on the basis of this examination. 3. Cervical spondylosis as detailed above. Signed by: Dr. Raina Rosado M.D. on 04/14/2019 8:35 PM
[2019-04-14] MEDS: CEFEPIME 2 GM/NS 0.9% 100 ML 100 ML IV SCH (20:58)
[2019-04-14] MEDS ORDERED: ONDANSETRON HCL INJ 2MG/ML 2ML 2 MG/ML VIAL IV PRN (21:00)
[2019-04-14] MEDS ORDERED: LOSARTAN POTASS25 MG PO (21:45)
[2019-04-14] MEDS ORDERED: PANTOPRAZOLE SO40 MG PO (21:46)
[2019-04-14] MEDS ORDERED: LASIX20 MG PO (21:46)
[2019-04-14] MEDS: FAMOTIDINE 20 MG/2 ML VIAL IV SCH (21:51)
[2019-04-14] MEDS: SODIUM CHLORIDE 0.9% 1000ML 1,000 ML IV SCH (22:13)
[2019-04-14 23:16] VITALS: BP 153/91
[2019-04-14 23:42] VITALS: BP 153/91
[2019-04-15] VITALS (8 sets, daily range): BP systolic 118–193; BP diastolic 58–95
[2019-04-15 06:25] LABS: BASOPHILS % 0.7 % (0.0-1.0); EOSINOPHILS # (AUTO) 0.3 (0.0-0.4); EOSINOPHILS % 7.1 % (0.0-6.0); HEMATOCRIT 38.3 % (34.2-44.1); HEMOGLOBIN 12.5 g/dL (12.0-16.0); LYMPHOCYTES # (AUTO) 0.7 (1.0-3.2); LYMPHOCYTES % 16.4 % (18.0-39.1); MEAN CORPUSCULAR HEMOGLOBIN 30.2 pg (28-32); MEAN CORPUSCULAR HGB CONC 32.6 g/dL (31-35); MEAN CORPUSCULAR VOLUME 92.5 fL (81-99); MONOCYTES # (AUTO) 0.4 (0.2-0.8); MONOCYTES % 8.3 % (4.4-11.3); NEUTROPHILS # (AUTO) 2.8 (2.1-6.9); PLATELET COUNT 134 x10e3/uL (140-360); RED BLOOD COUNT 4.14 x10e6/uL (3.6-5.1); RED CELL DISTRIBUTION WIDTH 13.2 % (11.7-14.4)
[2019-04-15 06:58] LABS: CREATINE KINASE MB 10.3 ng/mL (0-5.0)
[2019-04-15 07:17] LABS: ALANINE AMINOTRANSFERASE 14 IU/L (0-55); ALBUMIN 2.4 g/dL (3.5-5.0); ALBUMIN/GLOBULIN RATIO 0.6 (0.8-2.0); ALKALINE PHOSPHATASE 72 IU/L (40-150); ANION GAP 11.6 mmol/L (8-16); BLOOD UREA NITROGEN 14 mg/dL (7-26); BUN/CREATININE RATIO 18 (6-25); CALCIUM 8.9 mg/dL (8.4-10.2); CARBON DIOXIDE 21 mmol/L (22-29); CHLORIDE 106 mmol/L (98-107); CREATININE, SERUM 0.77 mg/dL (0.57-1.11); EST GLOMERULAR FILTRATION RATE > 60 ML/MIN (60-); GLUCOSE 90 mg/dL (74-118); POTASSIUM 3.6 mmol/L (3.5-5.1); SODIUM 135 mmol/L (136-145)
[2019-04-15 07:55] LABS: LYMPHOCYTES % (MANUAL) 17 % (19-48); MONOCYTES % (MANUAL) 8 % (3.4-9.0); NEUTROPHILS % (MANUAL) 69 % (40-74); PLATELET ESTIMATE MODERATELY DECREASED; PLATELET MORPHOLOGY COMMENT FEW LARGE; PROMYELOCYTES % (MANUAL) 6 % (0-0); RBC MORPHOLOGY COMMENT NORMAL
[2019-04-15] MEDS: CEFEPIME 2 GM/NS 0.9% 100 ML 100 ML IV SCH ×2 (09:47→20:27)
[2019-04-15] MEDS: FAMOTIDINE 20 MG/2 ML VIAL IV SCH (09:57)
[2019-04-15 16:03] LABS: CREATINE KINASE 441 IU/L (29-168)
[2019-04-15] MEDS: SODIUM CHLORIDE 0.9% 1000ML 1,000 ML IV SCH (18:29)
[2019-04-15] MEDS: LOSARTAN POTASSIUM 25 MG TAB PO SCH (18:49)
[2019-04-15] MEDS: FUROSEMIDE 20 MG TAB PO SCH (18:49)
[2019-04-15] MEDS: APIXAB 2.5 MG TABLET PO SCH (18:49)
[2019-04-15] MEDS: PANTOPRAZOLE SOD 40 MG TABEC PO SCH (18:49)
[2019-04-15] MEDS: METOPROLOL TARTRATE 25 MG TAB PO SCH (18:49)
--- NOTE | 2019-04-15 19:00 | NUR ---
RECEIVED PATIENT IN BEDSIDE REPORT. PATIENT SLEEPING AT THIS TIME. NO SIGNS OF PAIN NOTED. NO S&S OF DISTRESS NOTED. ALTERNATING PRESSURE MATTRESS ACTIVE. L AC 20G ASYMPTOMATIC, INTACT, AND PATENT, RUNNING NS @75 ML/HR. BED LOCKED IN LOWEST POSITION, SIDE RAILS UPX2, BED ALARM ON, CALL LIGHT IN REACH.
--- NOTE | 2019-04-15 19:48 | History and Physical ---
CHIEF COMPLAINT: Generalized weakness, not interacting and lethargy for the last few days. HISTORY OF PRESENT ILLNESS: An 89-year-old female with past medical history of multiple medical problems, was seen in my office yesterday evening with above complaints. The patient was referred to [facility] ER for further workup and treatment. The patient is very poor historian. As per patient's daughter, the patient since last few days is getting increased weakness, lethargy, not interacting and being less responsive, and hence, patient was brought to my office yesterday. In the emergency room, the patient was seen by emergency room doctor and was admitted for further care and treatment. At present, the patient is lying comfortably, in no apparent distress. PAST MEDICAL HISTORY: 1. Atrial fibrillation. 2. CHF. 3. Left occipital CVA. 4. Bilateral DVT, pulmonary embolism in the past. 5. CAD. 6. Hypertension. 7. DJD/osteoarthritis. 8. Hypothyroidism. 9. Dementia. MEDICATIONS: As listed in chart. SOCIAL HISTORY: No alcohol. No smoking. No illicit drug use. Lives with daughters. ALLERGIES: PENICILLIN. PAST HOSPITALIZATIONS: 1. PE, DVT admitted in [employer] in February 2015. 2. September 2016 at [facility] for left occipital lobe CVA. REVIEW OF SYSTEMS: Unable to elicit as the patient is a poor historian and dementia. PHYSICAL EXAMINATION: GENERAL: The patient is awake, oriented x0, lying comfortably in bed. No apparent distress. VITAL SIGNS: Temperature is 96.4, pulse is 68 per minute, respiratory rate is 16 per minute, blood pressure is 180/90, saturation is 96%. SKIN: No cyanosis. No icterus. No pallor. HEENT: Normocephalic, atraumatic. PERRLA plus. NECK: Soft, supple. . LUNGS: Air entry bilaterally equal. HEART: No murmur. No gallop. No rub. ABDOMEN: Soft, nontender. Bowel sounds plus. PRACTICAL NURSING FACULTY: The patient is awake, oriented x0, laughing, mumbling words and moving extremities. LABORATORY DATA: This morning, white count 4.2, hemoglobin 12.5, hematocrit 38.3, platelets 134. Sodium 135, potassium 3.6, chloride 106, bicarb 21, BUN 14, creatinine 0.7. LFTs noted on admission. Creatinine was 1.24. Total CK on admission was 814. Troponin negative. INR 1.13, PTT 30.9. Urine shows rbc's 6-10, wbc's 6-10, bacteria many. RADIOLOGICAL DATA: 1. CT brain shows interval development of age indeterminate lacunar infarct in left caudate head and right thalamus. 2. No acute intracranial hemorrhage, chronic findings. Moderate supratentorial white matter microvascular ischemic changes, chronic encephalomalacia in left occipital lobe from prior vascular insult and chronic lacunar infarct in left cerebellar hemisphere. Mild generalized cerebral volume loss. 3. CT C-spine, no acute cervical spine fracture or dislocation. 4. X-ray, left knee, scattered degenerative changes. No osseous erosion. 5. X-ray pelvis scattered degenerative changes. No osseous erosion. 6. Chest x-ray, no acute intrathoracic abnormality. 7. EKG shows atrial fibrillation at a rate of 76 beats per minute, ST-T changes in lateral leads. ASSESSMENT: 1. Encephalopathy, could be metabolic, dehydration versus cerebrovascular accident. 2. Urinary tract infection. 3. History of atrial fibrillation, congestive heart failure, cerebrovascular accident, hypertension, dementia. PLAN: Admit the patient to [facility]. The patient is started on IV cefepime. The patient has tolerated antibiotics well so far. Pancultures, neurology consultation, Dr. Margarita Falcon. Cardiology consultation, Dr. Kaya Yanes. Echo. Continue home medications. Further care and treatment secondary as per clinical course of the patient in the hospital. Prognosis and condition guarded. Luther Alvarado MD SSB/MODL /[id number]
--- NOTE | 2019-04-15 19:58 | Diagnostic Imaging Report ---
Radiographs of the left knee HISTORY: Pain COMPARISON: 04/14/2019. FINDINGS: Bones: No acute displaced fracture. Osseous alignment is within normal limits. Joints: Scattered degenerative change. No osseous erosion Soft tissues: Scattered vascular calcification. 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 IMPRESSION: Scattered degenerative change. 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 Signed by: Dr. Aiden Reyes M.D. on 04/15/2019 7:22 PM
--- NOTE | 2019-04-15 22:19 | NUR ---
Cardiology Consult Dictation# [id number]
[2019-04-15] MEDS: CLONIDINE HCL 0.1 MG TAB PO PRN (23:38)
[2019-04-16] VITALS (7 sets, daily range): BP systolic 129–182; BP diastolic 79–102
[2019-04-16] MEDS: SODIUM CHLORIDE 0.9% 1000ML 1,000 ML IV SCH ×2 (02:30→13:36)
--- NOTE | 2019-04-16 05:20 | Consultation ---
DATE OF CONSULTATION: 04/15/2019 Cardiology consultation. REQUESTING PHYSICIAN: Justin Alvarado MD. REASON FOR CONSULTATION: Congestive heart failure and atrial fibrillation. HISTORY OF PRESENT ILLNESS: This is an 89-year-old woman with atrial fibrillation, congestive heart failure, history of PE/DVT/pulmonary hypertension, hypertension, history of CVA, coronary artery disease, hypothyroidism, and dementia, who was brought to the ER for her altered mental status. All history is obtained from the EMR as no family is available at bedside and the patient did not respond to questions. The patient has apparently been less responsive for the last two weeks. Cardiology is consulted for management of atrial fibrillation and congestive heart failure. The patient was apparently brought to Dr. Alvarado's office yesterday by the family due to increased weakness, lethargy, and decreased responsiveness. She was sent to the ER for further evaluation. REVIEW OF SYSTEMS: Unable to obtain secondary to altered mental status. PAST MEDICAL HISTORY: 1. Atrial fibrillation. 2. History of DVT/PE. 3. Pulmonary hypertension. 4. Congestive heart failure. 5. Coronary artery disease. 6. History of cerebrovascular accident. 7. Hypertension. 8. Hypothyroidism. 9. Dementia. PAST SURGICAL HISTORY: Cholecystectomy, appendectomy, and hysterectomy. ALLERGIES: PLEASE SEE EMR. MEDICATIONS: Please see medication list. SOCIAL HISTORY: No tobacco, alcohol, or illicit drugs. Lives with her daughter. FAMILY HISTORY: Noncontributory to current illness. PHYSICAL EXAMINATION: VITAL SIGNS: Temperature 96.1 degrees, pulse 69, respiratory rate 14, blood pressure 182/90, and oximetry 96% on room air. GENERAL: Elderly frail appearing woman, no acute distress, awake, but unresponsive. HEENT: Normocephalic and atraumatic. NECK: Supple. No thyroid or cervical lymphadenopathy. No carotid bruits. LUNGS: Clear to auscultation bilaterally. No wheezes or crackles. CARDIOVASCULAR: Normal rate, irregularly regular. Normal S1, S2. ABDOMEN: Soft and nontender. EXTREMITIES: No edema. LABORATORY DATA: WBC 4.2, hemoglobin 12.5, hematocrit 38.3, and platelets 134. Sodium 135, potassium 3.6, chloride 106, CO2 of 21, BUN 14, and creatinine 0.77. Troponin less than 0.001. EKG, atrial fibrillation, septal infarct, age indeterminate, ST-T-wave abnormality. Chest x-ray, no acute thoracic abnormality. CT brain, interval development of age-indeterminate, lacunar infarct in left caudate head and right thalamus. No acute intracranial hemorrhage, moderate supratentorial white matter, microvascular ischemic changes, chronic encephalomalacia. IMPRESSION: 1. Altered mental status. 2. Urinary tract infection suggested by UA. 3. Atrial fibrillation. 4. Congestive heart failure. 5. History of deep venous thrombosis/pulmonary embolism. 6. Pulmonary hypertension. 7. Hypertension. 8. Coronary artery disease. 9. History of cerebrovascular accident. 10. Hypothyroidism. 11. Dementia. RECOMMENDATIONS: Monitor the patient on telemetry. Continue home cardiac medications. Check TSH. Monitor the patient closely on telemetry while admitted. Antibiotics per primary service. Obtain echocardiogram. Continue supportive care. Thank you for this consult. We will continue to follow. Kaya Yanes MD ABS/MODL /[id number]
[2019-04-16] MEDS: LEVOTHYROXINE SODIUM 75 MCG TAB PO SCH (06:00)
[2019-04-16] MEDS ORDERED: HYOSCYAMINE 0.125 MG TAB ONE (07:19)
[2019-04-16] MEDS ORDERED: LEVOTHYROXINE SODIUM 88 MCG TAB PO SCH (09:00)
--- NOTE | 2019-04-16 09:22 | NUR ---
pt unable to answer questions at this time for a dpa will review chart.
[2019-04-16] MEDS: CEFEPIME 2 GM/NS 0.9% 100 ML 100 ML IV SCH ×2 (11:14→21:30)
[2019-04-16] MEDS: PANTOPRAZOLE SOD 40 MG TABEC PO SCH (11:14)
[2019-04-16] MEDS: APIXAB 2.5 MG TABLET PO SCH ×2 (11:14→16:51)
[2019-04-16] MEDS: LOSARTAN POTASSIUM 25 MG TAB PO SCH (11:14)
[2019-04-16] MEDS: METOPROLOL TARTRATE 25 MG TAB PO SCH ×2 (11:15→16:51)
[2019-04-16] MEDS: FOLIC ACID 1 MG TAB PO SCH (11:15)
[2019-04-16] MEDS: FUROSEMIDE 20 MG TAB PO SCH (11:15)
--- NOTE | 2019-04-16 14:13 | Progress Note ---
DATE: 04/16/2019 Cardiology Progress Note SUBJECTIVE: The patient is awake, but does not respond to questions. OBJECTIVE: VITAL SIGNS: Temperature 97.6 degrees, pulse 75, respiratory rate 17, blood pressure 177/86, and oxygen saturation 98% on room air. GENERAL: Elderly frail-appearing woman, awake, but does not respond to questions. No acute distress. LUNGS: Clear to auscultation bilaterally. No wheezes or crackles. CARDIOVASCULAR: Normal rate, irregularly irregular. Normal S1, S2. ABDOMEN: Soft, nontender. EXTREMITIES: No edema. CARDIAC MEDICATIONS: Metoprolol tartrate 25 mg p.o. b.i.d., furosemide 20 mg p.o. daily, apixaban 2.5 mg p.o. b.i.d., losartan 50 mg p.o. daily, and levothyroxine 75 mcg p.o. daily. LABORATORY DATA: None today. TELEMETRY: Atrial fibrillation. IMPRESSION: 1. Altered mental status. 2. Urinary tract infection, suggested by UA. 3. Atrial fibrillation. 4. Congestive heart failure. 5. History of deep venous thrombosis/pulmonary embolism. 6. Pulmonary hypertension. 7. Hypertension. 8. Coronary artery disease and history of cerebrovascular accident. 9. Hypothyroidism. 10. Dementia. RECOMMENDATIONS: Monitor the patient on telemetry. Continue current cardiac medications. Antibiotics per primary service. Echocardiogram is pending. Further evaluation of altered mental status per primary service. Continue supportive care. Thank you for this consult. We will continue to follow. Kaya Yanes MD ABS/MODL /[id number]
--- NOTE | 2019-04-16 19:00 | NUR ---
RECEIVED PATIENT IN BEDSIDE REPORT. PATIENT RESTING AT THIS TIME. BED ALARM ON. ALTERNATING PRESSURE MATTRESS ACTIVE. IV FLUIDS RUNNING AT 75ML/HR TO L AC 20G. NO S&S OF DISTRESS NOTED. BED LOCKED IN LOWEST POSITION, SIDE RAILS UPX2, CALL LIGHT IN REACH.
[2019-04-17] MEDS: LEVOTHYROXINE SODIUM 75 MCG TAB PO SCH (04:35)
[2019-04-17] MEDS: CLONIDINE HCL 0.1 MG TAB PO PRN ×2 (04:35→11:12)
--- NOTE | 2019-04-17 07:09 | NUR ---
DOWNTIME DOCUMENTATION FILED IN PAPER CHART FOR VITAL SIGNS, NURSES NOTES, ASSESSMENT.
--- NOTE | 2019-04-17 07:27 | NUR ---
RECEIVED PATIENT SLEEPING IN BED AT THIS TIME. NO SIGNS OF DISTRESS. BED LOW,WHEELS LOCKED, SIDE RAILS X2. CALL LIGHT IN REACH WILL CONTINUE TO MONITOR PATIENT.
[2019-04-17] MEDS: PANTOPRAZOLE SOD 40 MG TABEC PO SCH (07:30)
[2019-04-17 07:41] VITALS: BP 129/66
[2019-04-17] MEDS: SODIUM CHLORIDE 0.9% 1000ML 1,000 ML IV SCH ×4 (08:29→21:33)
[2019-04-17] MEDS: METOPROLOL TARTRATE 25 MG TAB PO SCH ×2 (08:30→16:47)
[2019-04-17 08:33] VITALS: BP 129/66
[2019-04-17] MEDS: LOSARTAN POTASSIUM 25 MG TAB PO SCH (09:17)
[2019-04-17] MEDS: FUROSEMIDE 20 MG TAB PO SCH (09:17)
[2019-04-17] MEDS: APIXAB 2.5 MG TABLET PO SCH ×2 (09:17→16:57)
[2019-04-17] MEDS: FOLIC ACID 1 MG TAB PO SCH (09:17)
--- NOTE | 2019-04-17 09:45 | NUR ---
PATIENT RESTING IN BED NO S/S OF DISTRESS. OPENS EYES TO NAME. LEFT AC 2O GAUGE IV WITH NS @ 75 CC/HR. NO EDEMA. ALLEVYN TO SACRUM. RIGHT UPPER HIP SKIN TEAR. PATIENT VOIDS IN DIAPER. RESPONDS TO PAIN WHEN TURNING. CALL LIGHT IN REACH, BED ALARM ON. WILL CONTINUE TO MONITOR PATIENT.
--- NOTE | 2019-04-17 10:55 | NUR ---
SPOKE WITH DAUGHTER VIA PHONE MYLES MCDOWELL [phone] SHE STATES HER MOTHER HAS BEEN TO [facility] AND WOULD LIKE FOR HER TO RETURN THERE. FAXING CLINICALS TO [phone]
--- NOTE | 2019-04-17 11:07 | NUR ---
NOTIFIED DR. MYRICK OF BLOOD PRESSURE 196/95. OK TO GIVE CLONIDINE PRN EARLY.
[2019-04-17 11:56] VITALS: BP 196/95
[2019-04-17] MEDS ORDERED: LOSARTAN POTASSIUM 25 MG TAB PO ONE (12:30)
--- NOTE | 2019-04-17 14:36 | NUR ---
IV ABX DE'D VIA DR MYRICK, SNF REFERRAL ON HOLD, UNABLE TO PROCESS WITH OUT CRITERIA
--- NOTE | 2019-04-17 15:19 | NUR ---
SPOKE WITH DR MYRICK AND NOTIFIED HIM THAT PT HAS NO SNF CRITERIA DR MYRICK STATES NO NEED FOR IV ABX ORDERS REC'D TO SPEAK WITH FAMILY ABOUT [facility] PLACEMENT
[2019-04-17 15:30] VITALS: BP 183/102
--- NOTE | 2019-04-17 16:13 | Consultation ---
DATE OF CONSULTATION: 04/16/2019 Neurology Consult Note HISTORY OF PRESENT ILLNESS: Ms. James is an 89-year-old woman with past medical history significant for hypertension, coronary artery disease, congestive heart failure, atrial fibrillation, multiple prior strokes with unknown residual deficits, dementia, presumably vascular, admitted to [facility] on April 14, 2019, with multiple symptoms. Unfortunately, the patient is encephalopathic and cannot provide her medical history. There are no family members available at the bedside. History is obtained from review of the electronic medical records. For 3-4 days prior to admission, Ms. James was noted by her daughter to have progressively to experience a gradually decreased level of responsiveness, worsening lethargy, and generalized weakness. On the day of admission, Ms. James was seen in the office of her primary care physician, Dr. Alvarado. Dr. Alvarado directed the patient and her daughter to the emergency center at [facility] for further evaluation and treatment of her symptoms. In the emergency center, Ms. James was found to have an acute kidney injury as well as a urinary tract infection. The patient was subsequently admitted to [facility] for further evaluation and treatment of the aforementioned. REVIEW OF SYSTEMS: Unable to obtain secondary to the patient being encephalopathic. PAST MEDICAL HISTORY: Hypertension, coronary artery disease, congestive heart failure, atrial fibrillation, thyroid disease, osteoarthritis, gastroesophageal reflux disease, multiple prior strokes with unknown deficits with a large stroke being in the left occipital lobe, prior deep venous thromboses x2, pulmonary embolus, and dementia, presumably vascular. PAST SURGICAL HISTORY: Appendectomy, cholecystectomy, and hysterectomy. PAST HOSPITALIZATIONS: Surgeries/procedures as listed, stroke, DVT, PE. FAMILY MEDICAL HISTORY: None documented. SOCIAL HISTORY: Ms. James is . She lives with her daughter, who is her primary caregiver. The patient is retired. There is no reported current or prior tobacco, alcohol, or recreational drug use. HOME MEDICATIONS: Reviewed. Please see the list of home medications available in the electronic medical record. HOSPITAL MEDICATIONS: Reviewed. Please see the list of hospital medications available in the electronic medical record. ALLERGIES: PENICILLIN. NO KNOWN FOOD ALLERGIES. NO KNOWN ALLERGIES TO LATEX. NO KNOWN ALLERGIES TO IODINE OR OTHER CONTRAST MATERIALS. PHYSICAL EXAMINATION: VITAL SIGNS: Height 66 inches, weight 102 pounds. BMI 16.5 kg/m2, blood pressure 134/92 mmHg, pulse 90 beats per minute, respiratory rate 19 breaths per minute, and oxygen saturation 95% on room air. GENERAL: The patient is awake and alert, does not appear distressed. Thin. HEENT: Normocephalic, atraumatic. Pupils are equal, round, and sluggishly reactive to light. Moist mucous membranes. NECK: Supple. No appreciable thyromegaly. No appreciable carotid bruits. CARDIOVASCULAR: S1, S2, regular rate, irregular rhythm. No murmurs, rubs, or gallops. RESPIRATORY: Clear to auscultation bilaterally. No wheezes, rhonchi, or rales. EXTREMITIES: The skin is warm and dry. No clubbing, cyanosis, or edema. The posterior tibial and dorsalis pedis pulses are 1+ and symmetric. SKIN: No rashes or lesions. NEUROLOGIC: Memory/Attention: The patient is awake and alert. She does not answer orientation questions. She does not follow commands. Cranial Nerves: Cranial nerve I - not tested. Cranial nerve II, III, IV, and - pupils are equal and round, react sluggishly to light (from 4 mm to 2 mm). Extraocular movements are grossly intact. No nystagmus. Cranial nerve V - sensation to light touch is grossly intact in the bilateral V1 through V3 distributions. Strength in the temporalis and masseter muscles is within normal limits. Cranial nerve VII - the face is symmetric as are all facial movements. Strength is within normal limits. Cranial nerve VIII - hearing is intact to voice bilaterally. Cranial nerve IX, X - the soft palate elevates equally and symmetrically. Cranial nerve XII - the tongue protrudes midline and moves symmetrically from [id number]. Strength: Bulk is significantly reduced in both arms and both legs. Ms. James moves all extremities spontaneously and symmetrically. She withdraws both arms and both legs to peripheral noxious stimulation. Strength is grossly 4/5. Tone is normal in both arms and both legs. DTRs: Deep tendon reflexes are 1+ and symmetric at the triceps, biceps, and brachioradialis. Deep tendon reflexes are absent and symmetric at the patellas and Achilles. Plantar responses are flexor bilaterally. SENSATION: Ms. James withdraws both arms and both legs to peripheral noxious stimulation. Cerebellar: Unable to assess secondary to the patient being encephalopathic. Gait: Deferred. Speech: The patient does not speak during the encounter. Involuntary Movements: None. Pronator Drift: As per motor exam. LABORATORY DATA: Unavailable for review at the time of dictation. DIAGNOSTIC STUDIES: Electrocardiogram on 04/14/2019, atrial fibrillation at 76 beats per minute. Echocardiogram on 04/15/2019, ejection fraction 55% to 60%. Concentric left ventricular hypertrophy. Left atrial enlargement. Right atrial enlargement. [id number] aortic insufficiency. Mild pulmonic insufficiency. Moderate mitral and tricuspid regurgitation. The remainder of the diagnostic studies are unavailable for review at the time of dictation. ASSESSMENT AND PLAN: Ms. James is an 89-year-old woman with past medical history as detailed, admitted to [facility] on April 14, 2019, with progressively decreasing level of responsiveness, worsening lethargy, and generalized weakness. Other than [id number] encephalopathy, the patient's neurological examination is nonfocal. Her laboratory data and diagnostic studies have been reviewed. In my opinion, Ms. James has not multifactorial metabolic encephalopathy superimposed on known dementia, probably vascular dementia. Contributing to the patient's metabolic encephalopathy are acute kidney injury, urinary tract infection, and possible CHF exacerbation. RECOMMENDATIONS: As follows: 1. Acute kidney injury is resolved. Encourage oral intake of fluids. 2. Urinary tract infection - continue treatment with intravenous and oral antibiotics per Primary Service. 3. Defer treatment of possible CHF exacerbation, other cardiac disease to the Cardiology Service. 4. Vascular dementia - continue treatment of vascular risk factors (i.e., atrial fibrillation, hypertension, hyperlipidemia, diabetes mellitus, etc.) to the primary and other services following the patient. 5. Limit the use of sedative/hypnotic and pain medications as these will alter the patient's sensorium. 6. Utilize environmental cues to limit the occurrence of delirium. 7. Defer treatment of the remaining medical comorbidities to the primary and other services following the patient. There are no other recommendations from the Neurology Service at this time. Please call again with any questions or concerns. TIME SPENT: 50 minutes. Margarita Falcon MD CP/MODL /[id number]
[2019-04-17] MEDS: HYDRALAZINE HCL 20 MG/ML VIAL IV PRN (16:58)
[2019-04-17 20:00] VITALS: BP 167/98
[2019-04-17 20:13] VITALS: BP 167/98
--- NOTE | 2019-04-17 22:16 | Progress Note ---
DATE: 04/17/2019 Cardiology Progress Note SUBJECTIVE: The patient did not respond to questions. OBJECTIVE: VITAL SIGNS: Temperature 96.2 degrees, pulse 75, respiratory rate 17, blood pressure 196/95, oxygen saturation 95% on room air. GENERAL: Elderly, frail-appearing woman, awake, but does not respond to questions. No acute distress. LUNGS: Clear to auscultation bilaterally. No wheezes or crackles. CARDIOVASCULAR: Normal rate. Irregularly irregular. Normal S1, S2. ABDOMEN: Soft, nontender. EXTREMITIES: No edema. CARDIAC MEDICATIONS: Furosemide 20 mg p.o. daily, levothyroxine 75 mcg p.o. daily, apixaban 2.5 mg p.o. b.i.d., metoprolol tartrate 25 mg p.o. b.i.d., losartan 100 mg p.o. daily. LABORATORY DATA: None today. TELEMETRY: Atrial fibrillation, rate controlled. IMPRESSION: 1. Altered mental status. 2. Urinary tract infection, suggested by UA. 3. Atrial fibrillation. 4. Congestive heart failure. 5. History of deep vein thrombosis/pulmonary embolism. 6. Pulmonary hypertension. 7. Hypertension. 8. Coronary artery disease. 9. History of cerebrovascular accident. 10. Hypothyroidism. 11. Dementia. RECOMMENDATIONS: 1. The patient's blood pressure is poorly controlled. Discontinue metoprolol. Start carvedilol. Continue losartan, apixaban, and furosemide. Hydralazine p.r.n. as necessary. We will further titrate antihypertensive therapy based on blood pressure response. Antibiotics per primary service. Further evaluation of altered mental status per primary service. 2. Continue supportive care. Thank you for this consult. We will continue to follow. Kaya Yanes MD ABS/MODL /[id number]
[2019-04-18] VITALS (8 sets, daily range): BP systolic 133–226; BP diastolic 85–122
[2019-04-18] MEDS: HYDRALAZINE HCL 20 MG/ML VIAL IV PRN (00:10)
[2019-04-18] MEDS: SODIUM CHLORIDE 0.9% 1000ML 1,000 ML IV SCH (05:00)
[2019-04-18] MEDS: LEVOTHYROXINE SODIUM 75 MCG TAB PO SCH (05:17)
[2019-04-18 06:10] LABS: BASOPHILS % 0.2 % (0.0-1.0); EOSINOPHILS # (AUTO) 0.1 (0.0-0.4); HEMATOCRIT 46.6 % (34.2-44.1); HEMOGLOBIN 15.2 g/dL (12.0-16.0); LYMPHOCYTES # (AUTO) 0.8 (1.0-3.2); LYMPHOCYTES % 14.5 % (18.0-39.1); MEAN CORPUSCULAR HEMOGLOBIN 30.3 pg (28-32); MEAN CORPUSCULAR HGB CONC 32.6 g/dL (31-35); MEAN CORPUSCULAR VOLUME 92.8 fL (81-99); MONOCYTES # (AUTO) 0.4 (0.2-0.8); MONOCYTES % 8.1 % (4.4-11.3); NEUTROPHILS # (AUTO) 3.9 (2.1-6.9); NEUTROPHILS % 75.6 % (38.7-80.0); PLATELET COUNT 179 x10e3/uL (140-360); RED BLOOD COUNT 5.02 x10e6/uL (3.6-5.1); RED CELL DISTRIBUTION WIDTH 13.2 % (11.7-14.4)
[2019-04-18 06:36] LABS: ALANINE AMINOTRANSFERASE 14 IU/L (0-55); ALBUMIN/GLOBULIN RATIO 0.6 (0.8-2.0); ALKALINE PHOSPHATASE 79 IU/L (40-150); ANION GAP 15.7 mmol/L (8-16); BLOOD UREA NITROGEN 10 mg/dL (7-26); BUN/CREATININE RATIO 11 (6-25); CARBON DIOXIDE 21 mmol/L (22-29); CHLORIDE 101 mmol/L (98-107); CREATININE, SERUM 0.92 mg/dL (0.57-1.11); EST GLOMERULAR FILTRATION RATE > 60 ML/MIN (60-); GLUCOSE 96 mg/dL (74-118); POTASSIUM 3.7 mmol/L (3.5-5.1); SODIUM 134 mmol/L (136-145)
[2019-04-18 06:46] LABS: CALCIUM 10.5 mg/dL (8.4-10.2)
--- NOTE | 2019-04-18 07:01 | NUR ---
RECEIVED PATIENT ASLEEP IN BED NO S/S OF DISTRESS. BED LOW, WHEELS LOCKED, SIDE RAILS X2. CALL LIGHT IN REACH WILL CONTINUE TO MONITOR PATIENT.
[2019-04-18] MEDS: PANTOPRAZOLE SOD 40 MG TABEC PO SCH (07:30)
[2019-04-18] MEDS ORDERED: LOSARTAN POTASSIUM 25 MG TAB PO SCH (09:00)
[2019-04-18] MEDS ORDERED: CARVEDILOL 12.5 MG TAB PO SCH (09:00)
--- NOTE | 2019-04-18 11:40 | NUR ---
PATIENT RESTING IN BED NO S/S OF DISTRESS. OPENS EYES TO NAME. LEFT AC 2O GAUGE IV WITH NS @ 75 CC/HR. NO EDEMA. ALLEVYN TO SACRUM. PUREWICK IN PLACE WITH CLEAR YELLOW URINE. PATIENT RESPONDS TO PAIN WHEN TURNING. CALL LIGHT IN REACH, BED ALARM ON. WILL CONTINUE TO MONITOR PATIENT.
[2019-04-18] MEDS: FOLIC ACID 1 MG TAB PO SCH (13:08)
[2019-04-18] MEDS: LOSARTAN POTASSIUM 100 MG TAB PO SCH (13:08)
[2019-04-18] MEDS: FUROSEMIDE 20 MG TAB PO SCH (13:08)
[2019-04-18] MEDS: APIXAB 2.5 MG TABLET PO SCH ×2 (13:08→17:40)
[2019-04-18] MEDS ORDERED: HYDRALAZINE HCL 20 MG/ML VIAL IV PRN (15:15)
[2019-04-18] MEDS: D5.45%NS/KCL 20MEQ 1,000 ML IV SCH (15:54)
[2019-04-18] MEDS: AMLODIPINE BESYLATE 5 MG TAB PO SCH (15:54)
--- NOTE | 2019-04-18 19:11 | Progress Note ---
DATE: 04/18/2019 Cardiology Progress Note SUBJECTIVE: The patient is unable to report. OBJECTIVE: VITAL SIGNS: Temperature 96.5, pulse 83, respiratory rate 20, blood pressure 171/98, oxygen saturation 98% on room air. GENERAL: Elderly frail woman, awake, but resting in bed, does not respond to question. Does not appear to be in acute distress. NECK: Supple. LUNGS: Clear to auscultation throughout. No wheezing. No rhonchi or crackles. CARDIOVASCULAR: Regular rate and rhythm. Normal S1, S2. S4 auscultated. ABDOMEN: Soft, nontender. EXTREMITIES: Lower extremity, no edema. CARDIOVASCULAR MEDICATIONS: Carvedilol 12.5 mg p.o. b.i.d., apixaban 2.5 mg p.o. b.i.d., losartan 100 mg p.o. daily, hydralazine 5 mg q.6 hours p.r.n. for hypertension, clonidine 0.1 mg q.8 hours p.r.n. for hypertension. LABORATORY DATA: WBC 5.16, hemoglobin 15.2, hematocrit 46.6, platelets 179. Sodium 134, potassium 3.7, BUN 10, creatinine 0.92. TELEMETRY: Atrial flutter, rate controlled. IMPRESSION: 1. Altered mental status. 2. Urinary tract infection. 3. Atrial flutter. 4. Congestive heart failure. 5. History of deep venous thrombosis and pulmonary emboli. 6. Pulmonary hypertension. 7. Hypertension. 8. Coronary disease. 9. History of cerebrovascular accident. 10. Hypothyroidism. 11. Dementia. RECOMMENDATION: The patient's blood pressure remains to be poorly controlled. We will go ahead and adjust her medications today, initiate a calcium channel wanda given that she is also. Antimicrobial therapy per primary team. Continue supportive care. Monitor her mental status. Dictated by Lisa Marte NP MD EUGENIO Avalos/NICANOR /[id number]
--- NOTE | 2019-04-18 20:26 | NUR ---
Repositioned .opened eyes to voice.aphasia.heel protectors in place.on diaper and pure wick applied.allevyn applied to right hip and sacrum.bed alarm on.bed locked and in lowest position.phone and call light within reach.keep monitor the patient.
[2019-04-18] MEDS: METOPROLOL TARTRATE INJ 1 MG/ML VIAL IV SCH (21:20)
[2019-04-18] MEDS: MIRTAZAPINE 15 MG TAB PO SCH (21:44)
--- NOTE | 2019-04-18 21:44 | NUR ---
Assisted to feed 120 ml of thickened cranberry juice.stable condition.
[2019-04-19] VITALS (8 sets, daily range): BP systolic 114–161; BP diastolic 58–98
[2019-04-19] MEDS: D5.45%NS/KCL 20MEQ 1,000 ML IV SCH ×2 (05:53→18:41)
[2019-04-19] MEDS: LEVOTHYROXINE SODIUM 75 MCG TAB PO SCH (05:58)
[2019-04-19 06:36] LABS: ANION GAP 12.6 mmol/L (8-16); BLOOD UREA NITROGEN 9 mg/dL (7-26); BUN/CREATININE RATIO 11 (6-25); CALCIUM 9.3 mg/dL (8.4-10.2); CARBON DIOXIDE 22 mmol/L (22-29); CHLORIDE 105 mmol/L (98-107); CREATININE, SERUM 0.79 mg/dL (0.57-1.11); EST GLOMERULAR FILTRATION RATE > 60 ML/MIN (60-); GLUCOSE 87 mg/dL (74-118); MAGNESIUM 1.4 MG/DL (1.3-2.1); POTASSIUM 3.6 mmol/L (3.5-5.1); SODIUM 136 mmol/L (136-145)
--- NOTE | 2019-04-19 06:58 | NUR ---
BED SIDE SHIFT REPORT GIVEN TO THE ONCOMING RN.STABLE CONDITION.
--- NOTE | 2019-04-19 07:16 | NUR ---
RECEIVED PATIENT RESTING IN BED NO SIGNS OF DISTRESS. BED LOW, WHEELS LOCKED, SIDE RAILS X2. CALL LIGHT IN REACH WILL CONTINUE TO MONITOR PATIENT.
[2019-04-19] MEDS: PANTOPRAZOLE SOD 40 MG TABEC PO SCH (07:30)
[2019-04-19] MEDS: APIXAB 2.5 MG TABLET PO SCH ×2 (09:08→16:58)
[2019-04-19] MEDS: AMLODIPINE BESYLATE 5 MG TAB PO SCH (09:08)
[2019-04-19] MEDS: LOSARTAN POTASSIUM 100 MG TAB PO SCH (09:08)
[2019-04-19] MEDS: METOPROLOL TARTRATE INJ 1 MG/ML VIAL IV SCH ×2 (09:08→20:33)
[2019-04-19] MEDS: FUROSEMIDE 20 MG TAB PO SCH (09:08)
[2019-04-19] MEDS: FOLIC ACID 1 MG TAB PO SCH (09:08)
--- NOTE | 2019-04-19 11:01 | NUR ---
PATIENT RESTING IN BED NO S/S OF DISTRESS. OPENS EYES TO VOICE. LEFT FA 2O GAUGE IV WITH D51/2NSKCL @ 75 CC/HR. NO EDEMA. ALLEVYN TO SACRUM. PUREWICK IN PLACE WITH CLEAR YELLOW URINE. PATIENT ATE 50% OF BREAKFAST. SWALLOWED CRUSHED PILLS WITHOUT DIFFICULTY. CALL LIGHT IN REACH, BED ALARM ON. WILL CONTINUE TO MONITOR PATIENT.
--- NOTE | 2019-04-19 12:59 | Progress Note ---
DATE: 04/19/2019 Cardiology Progress Note SUBJECTIVE: The patient is unable to report. She is nonverbal. OBJECTIVE: VITAL SIGNS: Temperature 97.9, pulse 69, respiratory rate 18, and blood pressure 142/88. GENERAL: Frail woman, who is resting in bed. Does not respond to question. Does not appear to be in any acute distress. NECK: Supple. LUNGS: Clear to auscultation throughout. No wheezing. No rhonchi or crackles. CARDIOVASCULAR: Regular rate and rhythm. S4 noted. ABDOMEN: Soft and nontender. EXTREMITIES: Lower extremity, no edema. CARDIOVASCULAR MEDICATIONS: Amlodipine 5 mg p.o. daily, metoprolol 5 mg IV q.12 hours, losartan 100 mg p.o. daily, apixaban 2.5 mg p.o. b.i.d., and Lasix 20 mg p.o. daily. LABORATORY DATA: Sodium 136, potassium 3.6, BUN 9, and creatinine 0.79. TELEMETRY: Atrial flutter. IMPRESSION: 1. Altered mental status. 2. Urinary tract infection. 3. Atrial flutter. 4. Congestive heart failure. 5. History of deep venous thrombosis and pulmonary embolism. 6. Pulmonary hypertension. 7. Hypertension. 8. Coronary artery disease. 9. History of cerebrovascular accident. 10. Hypothyroidism. 11. Dementia. RECOMMENDATIONS: The patient's blood pressure is fairly controlled. Continue the above-listed medication at this time. Continue to monitor the patient closely. Continue antimicrobial therapy per primary team. Continue to monitor her mental status at all times. Dictated by Lisa Marte NP MD EUGEINO Avalos/NICANOR /[id number]
[2019-04-19] MEDS ORDERED: POTASSIUM CHLORIDE 10MEQ EA PO NR (15:30)
[2019-04-19] MEDS ORDERED: DOCUSATE SODIUM 100 MG CAP PO PRN (15:30)
[2019-04-19] MEDS ORDERED: MAGNESIUM OXIDE 400 MG TAB PO NR (15:30)
--- NOTE | 2019-04-19 17:10 | NUR ---
PATIENT ATE 3.5 OZ, 100 CALORIES OF VANILLA PUDDING. TOLERATED WELL. NO DIFFICULTY SWALLOWING.
[2019-04-19] MEDS: MIRTAZAPINE 15 MG TAB PO SCH (20:33)
[2019-04-20 00:44] VITALS: BP 155/79
[2019-04-20 04:00] VITALS: BP 148/72
[2019-04-20] MEDS: LEVOTHYROXINE SODIUM 75 MCG TAB PO SCH (05:37)
[2019-04-20 06:47] LABS: BASOPHILS % 0.5 % (0.0-1.0); EOSINOPHILS # (AUTO) 0.3 (0.0-0.4); EOSINOPHILS % 7.1 % (0.0-6.0); HEMATOCRIT 40.6 % (34.2-44.1); HEMOGLOBIN 13.5 g/dL (12.0-16.0); LYMPHOCYTES # (AUTO) 1.1 (1.0-3.2); LYMPHOCYTES % 29.3 % (18.0-39.1); MEAN CORPUSCULAR HEMOGLOBIN 30.8 pg (28-32); MEAN CORPUSCULAR HGB CONC 33.3 g/dL (31-35); MEAN CORPUSCULAR VOLUME 92.7 fL (81-99); MONOCYTES # (AUTO) 0.4 (0.2-0.8); MONOCYTES % 10.4 % (4.4-11.3); NEUTROPHILS # (AUTO) 1.9 (2.1-6.9); NEUTROPHILS % 51.9 % (38.7-80.0); PLATELET COUNT 172 x10e3/uL (140-360); RED BLOOD COUNT 4.38 x10e6/uL (3.6-5.1); RED CELL DISTRIBUTION WIDTH 13.5 % (11.7-14.4)
[2019-04-20 07:05] LABS: ALANINE AMINOTRANSFERASE 13 IU/L (0-55); ALBUMIN 2.4 g/dL (3.5-5.0); ALBUMIN/GLOBULIN RATIO 0.6 (0.8-2.0); ALKALINE PHOSPHATASE 70 IU/L (40-150); BLOOD UREA NITROGEN 9 mg/dL (7-26); BUN/CREATININE RATIO 11 (6-25); CALCIUM 9.8 mg/dL (8.4-10.2); CARBON DIOXIDE 26 mmol/L (22-29); CHLORIDE 104 mmol/L (98-107); CHOL/HDL RATIO 5.1 (3.0-3.6); CHOLESTEROL 163 MD/DL (0-199); CREATININE, SERUM 0.84 mg/dL (0.57-1.11); EST GLOMERULAR FILTRATION RATE > 60 ML/MIN (60-); GLUCOSE 84 mg/dL (74-118); HDL CHOLESTEROL 32 MG/DL (40-60); LDL CHOLESTEROL 115 MG/DL (60-130); SODIUM 135 mmol/L (136-145); TRIGLYCERIDES 78 MG/DL (0-149)
[2019-04-20] MEDS: D5.45%NS/KCL 20MEQ 1,000 ML IV SCH (07:37)
[2019-04-20 08:00] VITALS: BP 164/94
[2019-04-20 08:30] VITALS: BP 164/94
--- NOTE | 2019-04-20 08:43 | Diagnostic Imaging Report ---
PROCEDURE: X-RAY MODIFIED BARIUM SWALLOW COMPARISON: None. INDICATION: Altered mental status, concern for aspiration Radiation Details: Fluoroscopy time: 1.8 minutes Cumulative dose: 6.74 mGy DISCUSSION: Fluoroscopic examination was performed in conjunction with speech pathology during swallowing a variety of thin and thick liquid consistencies. Provided images demonstrate laryngeal penetration and less than 10% bolus aspiration. CONCLUSION: Modified barium swallow demonstrating instances of laryngeal penetration and aspiration. Please refer to the speech pathology report for further details. Signed by: Yoko Monaco MD on 04/20/2019 8:40 AM
[2019-04-20] MEDS ORDERED: ONDANSETRON HCL 4 MG ORAL DISINTEGRATING TAB PO PRN (08:45)
[2019-04-20] MEDS ORDERED: ASPIRIN 81 MG ENTERIC COATED PO SCH (09:00)
[2019-04-20] MEDS: APIXAB 2.5 MG TABLET PO SCH (09:07)
[2019-04-20] MEDS: PANTOPRAZOLE SOD 40 MG TABEC PO SCH (09:07)
[2019-04-20] MEDS: FOLIC ACID 1 MG TAB PO SCH (09:07)
[2019-04-20] MEDS: LOSARTAN POTASSIUM 100 MG TAB PO SCH (09:07)
[2019-04-20] MEDS: AMLODIPINE BESYLATE 5 MG TAB PO SCH (09:07)
[2019-04-20] MEDS: METOPROLOL TARTRATE INJ 1 MG/ML VIAL IV SCH (09:07)
[2019-04-20] MEDS: FUROSEMIDE 20 MG TAB PO SCH (09:07)
[2019-04-20 09:29] VITALS: BP 164/94
--- NOTE | 2019-04-20 13:03 | NUR ---
ORDER REC'D FOR DC AND HOME HEALTH EVAL PT UNABLE TO GIVE CHOICE CM CALLED PT'S [facility] DTR MYLES MCDOWELL AT [phone] SHE HAS LIST OF 3 HOME HEALTH COMPANIES IN [facility] PT'S INSURANCE: 1.[facility] 2. [facility] 3. [facility] [employer] [facility]; PHONE: [phone] THIS IS A NON-WORKING NUMBER SECOND CHOICE [facility]: [phone]\ FAXED ORDERS TO: [phone] CONFIRMATION REC'D
[2019-04-20] MEDS ORDERED: LOSARTAN POTAS100 MG PO (15:09)
[2019-04-20] MEDS ORDERED: NORVASC5 MG PO (15:10)
[2019-04-20] MEDS ORDERED: ECOTRIN81 MG PO (15:11)
[2019-04-20] MEDS ORDERED: LEVOTHYROXINE75 MCG PO (15:15)
--- NOTE | 2019-04-20 18:04 | Progress Note ---
DATE: 04/20/2019 Cardiology Progress Note SUBJECTIVE: No major events overnight. No chest pain or shortness of breath. OBJECTIVE: VITAL SIGNS: Temperature afebrile, pulse 68, respiratory rate 18, blood pressure 154/94, saturating 100% on room air. GENERAL: Elderly woman, in no acute distress. CARDIOVASCULAR: Regular rate and rhythm. No murmurs, rubs, or gallops. LUNGS: Clear to auscultation anteriorly. ABDOMEN: Soft, nontender, and nondistended. EXTREMITIES: 1+ edema right greater than left. NEURO AND PSYCH: Alert and oriented to person, place, and time. Normal affect. INPATIENT MEDICATIONS: Reviewed. LABORATORY DATA: Reviewed. TELEMETRY DATA: Reviewed, shows rate controlled atrial fibrillation. ASSESSMENT AND PLAN: 1. Altered mental status. 2. Urinary tract infection. 3. Atrial fibrillation and atrial flutter. 4. Congestive heart failure. 5. History of deep venous thrombosis and pulmonary embolism. 6. Pulmonary hypertension. 7. Coronary artery disease. 8. History of cerebrovascular accident. 9. Hypothyroidism. 10. Dementia. RECOMMENDATIONS: Doing well from cardiovascular standpoint. Continue current cardiovascular regimen. Antibiotics per primary team. Mental status is much improved. Thank you for this consult. We will continue to follow. MD KIRA Carrasco/NICANOR /[id number]
--- NOTE | 2019-05-05 17:27 | Discharge Summary ---
CHIEF COMPLAINT: Generalized weakness. FINAL DIAGNOSES: 1. Encephalopathy, improved. 2. Cerebrovascular accident. 3. Vascular dementia. 4. Hypertension. 5. Congestive heart failure. DISPOSITION: Home, home health. HOSPITAL COURSE: 89-year-old female with history of multiple problems, presented to my office on the date of discharge where she was having generalized weakness, not interacting, lethargy, few-day history. With further evaluation, she was referred to the ER. She was seen and evaluated in the ER. Studies were performed and after reviewing the results of the data, admission was made regarding encephalopathy, could be metabolic, dehydration versus cerebrovascular accident. UTI. History of atrial fib, congestive heart failure, cerebrovascular accident, hypertension, dementia. The patient will be placed on telemetry. We will begin IV antibiotics. Obtain pancultures, requested Neuro follow and Cardiology follow. With admission, she was being seen by Cardiology, Dr. Yanes with issues of congestive heart failure as well as atrial fib. Following her evaluation, her impression was altered mental status, urinary tract infection suggested by UA, atrial fib, congestive heart failure, history of DVT, PE, pulmonary hypertension, hypertension, coronary artery disease, history of CVA, hypothyroidism, dementia. Recommend continuation of home medications. Recommended checking TSH. She was also undergoing Neurology followup by Dr. Falcon and following her extensive workup on the patient, states that the neurologic examination is nonfocal. Feels that in her opinion, the patient has findings of multifactorial metabolic encephalopathy, superimposed on known dementia, probable vascular dementia contributing to the patient's metabolic encephalopathy or acute kidney injury, urinary tract infection and possible congestive heart failure exacerbation. States that the acute kidney injury has resolved. Currently under treatment for the UTI, vascular dementia. Continue treatment of vascular risk factors. Limit the use of sedative, hypnotic, and pain medication. There are no other recommendations from the neurological service at this time. The patient was placed on the Med-Surg floor. She was on a cardiac diet. Her daily medications were started. She is also being started on cefepime. BP was somewhat elevated upon admission. Further continuation of monitoring of the lab studies was carried out. Continued on IV fluids. She is resting comfortably. She was having no new complaints. The pancultures were coming back negative. BP medications were adjusted further for better BP control. She was then undergoing evaluation for SNF placement. She was then taken off cefepime. It was also noted that she was having poor p.o. intake. Her mental status was showing much improvement. The patient was cleared for discharge home. She was taken off the IV fluids, set up with home health per Case Management, Makeup Editor, and released home 04/20/2019 stable, but guarded condition. IMAGING DATA: Chest reveals no acute findings. Pelvis, scattered degenerative change. Knee, left, scattered degenerative changes. Cervical spine, no acute findings. Cervical spondylosis noted. Brain CT shows interval development of an indeterminate lacunar infarct in the left caudate head and right thalamus. No acute intracranial hemorrhage. Chronic findings were also noted. Modified barium swallow performed with a concern for poor p.o. intake. Findings were showing instances of an angiopenetration and aspiration. Cultures were showing negative blood, negative urine. LABORATORY DATA: Laboratory studies were showing CBC, initial study unremarkable. Further studies were unremarkable. Urinalysis was showing 3+ protein, 1+ occult blood, 6-10 rbc's by high-power field, 6-10 wbc's by high-power field, many bacteria. Chemistries; initial panel shows electrolytes to be stable. Kidney functions, creatinine 1.24, glucose 203. First set of cardiac enzymes shows a CPK of 814, CK-MB band 15.20. Troponin 1 was pancho. Two more sets of cardiac enzymes returning downward. Troponin 1 continued to be normal. BNP was 271.7. Followup creatinine was 0.77. Final potassium was normal. Final creatinine 0.84. Final glucose 84. As mentioned, she was set up to go home, set up with Home Health. IVs were discontinued. She will continue monitored by Home Health as well as family members 3 times a week. Request to follow up in my office within 3-5 days. Home health will be contacting me in my office for any questions or concerns that they might have regarding the patient's orders or the patient's progress. Dictated by KOBE aPdilla Luther Alvarado MD CC/MODL /[id number]
== END 2019-04-20 16:06 | disposition home or self-care (01) | DRG 689 ==
LOC: ER 18:11 → ERHOLD 20:59 → MED/SURG 22:28
PROVIDERS: ADMIT Internal Medicine; ATTEND Internal Medicine
DX: N39.0 Urinary tract infection, site not specified (principal); G93.41 Metabolic encephalopathy; I48.92 Unspecified atrial flutter; I50.30 Unspecified diastolic (congestive) heart failure; I48.91 Unspecified atrial fibrillation; Z79.01 Long term (current) use of anticoagulants; Z86.73 Personal history of transient ischemic attack (TIA), and cerebral infarction without residual deficits; M19.90 Unspecified osteoarthritis, unspecified site; F03.90 Unspecified dementia, unspecified severity, without behavioral disturbance, psychotic disturbance, mood disturbance, and anxiety; Z86.718 Personal history of other venous thrombosis and embolism; I11.0 Hypertensive heart disease with heart failure; I25.10 Atherosclerotic heart disease of native coronary artery without angina pectoris; E03.9 Hypothyroidism, unspecified; E86.0 Dehydration
CPT/HCPCS: 36415; 70450; 71045; 72125; 72170; 74230; 80048; 80053; 80061; 81001; 82550; 82553; 83735; 83880; 84134; 84443; 84484; 85025; 85610; 85730; 87040; 87086; 93005; 93306; 96361; 97139; 99284; J0360; J3370; J7030; J7040